=== PATIENT | female | born 1965 | race Caucasian/White ===

== ENCOUNTER → 2017-05-10 | Outpatient (CLI) | payer BC ==
[~2017-05-10] MED LIST: EFF50 PO; IBUP600T44 PO; META1TAB22 PO; OXYC-57 PO; SYN150 PO
--- NOTE | 2017-05-11 14:35 | MAMMOGRAPHY REPORT ---
BILATERAL DIGITAL SCREENING MAMMOGRAM TOMOSYNTHESIS WITH CAD: 05/10/2017 CLINICAL HISTORY: Routine screening examination. TECHNIQUE: Breast tomosynthesis in addition to standard 2D mammography was performed. Current study was also evaluated with a Computer Aided Detection (CAD) system. COMPARISON: Comparison is made to exams dated: 04/21/2013 mammogram, 04/13/2013 mammogram, 07/24/2009 ultrasound, 07/24/2009 mammogram - [facility], and 07/04/2009. BREAST COMPOSITION: There are scattered areas of fibroglandular density in both breasts. FINDINGS: There is an asymmetry with possible associated architectural distortion in the upper outer posterior left breast, for which additional spot compression tomosynthesis views and possibly ultras ound are recommended, although this could represent normal overlapping fibroglandular tissue. There are numerous benign-appearing round calcifications scattered bilaterally. No other suspicious m ass, architectural distortion or cluster of microcalcifications is seen. IMPRESSION: ACR BI-RADS CATEGORY 0: INCOMPLETE EVALUATION: NEED ADDITIONAL IMAGING EVALUATION The asymmetry with possible associated distortion in the upper outer posterior left breast needs marvin tional evaluation. The patient will be called to schedule an appointment. Approximately 10% of breast cancers are not detected with mammography. A negative mammographic report should not delay biopsy if a clinically suggestive mass is present. Glenda Faye M.D. ay/:05/10/2017 15:01:27 Efficiency Miner: Anahy DUNNE)(Elmo), [facility] letter sent: Addl Imaging 0 BI-RADS Code: ACR BI-RADS Category 0: Incomplete Evaluation: Need Additional Imaging Evaluation
== END | disposition home or self-care (01) ==
LOC: C.MAMM 13:36
PROVIDERS: ATTEND Family Medicine
DX: Z12.31 Encounter for screening mammogram for malignant neoplasm of breast (principal); N64.89 Other specified disorders of breast; R92.8 Other abnormal and inconclusive findings on diagnostic imaging of breast

== ENCOUNTER → 2017-05-19 | Outpatient (CLI) | payer BC ==
--- NOTE | 2017-05-19 15:58 | MAMMOGRAPHY REPORT ---
UNILATERAL LEFT DIGITAL DIAGNOSTIC MAMMOGRAM TOMOSYNTHESIS: 05/19/2017 CLINICAL HISTORY: Callback from screening mammogram for left breast asymmetry with associated questio nable architectural distortion. TECHNIQUE: Breast tomosynthesis in addition to standard 2D mammography was performed. Spot compress ion left CC and MLO tomosynthesis images including C views were obtained. COMPARISON: Comparison is made to exams dated: 05/10/2017 mammogram, 04/21/2013 mammogram, 04/13/2013 m ammogram, 07/24/2009 ultrasound, 07/24/2009 mammogram - [facility], and 07/04/2009. BREAST COMPOSITION: There are scattered areas of fibroglandular density in the left breast. FINDINGS: The previously described asymmetry in the left upper outer breast effaces on the additional spot compression views, and has the appearance of normal fibroglandular tissue on the additional gina osynthesis images. No associated architectural distortion is noted on the additional images. Findin gs are benign and compatible with normal fibroglandular tissue. IMPRESSION: ACR BI-RADS CATEGORY 2: BENIGN The left breast asymmetry effaces on the additional views, with no associated architectural distortio n noted on the additional images. Findings are benign and compatible with normal fibroglandular tiss ue. There is no mammographic evidence of malignancy. A 1 year screening mammogram is recommended. T he patient has been verbally notified of the results. Approximately 10% of breast cancers are not detected with mammography. A negative mammographic report should not delay biopsy if a clinically suggestive mass is present. Mya Gasca M.D. ah/:05/19/2017 14:14:01 Research Microbiologist: Velma JUAREZ(Sebas)(M), [facility] letter sent: Normal 1/2 BI-RADS Code: ACR BI-RADS Category 2: Benign
== END | disposition home or self-care (01) ==
LOC: C.MAMM 13:48
PROVIDERS: ATTEND Family Medicine
DX: N64.89 Other specified disorders of breast (principal)

== ENCOUNTER 2017-09-23 20:59 | Emergency (ER) | payer BC ==
[~2017-09-23] VITALS: Ht 160 cm; Wt 84.6 kg
[2017-09-23 21:07] VITALS: TEMP 36.7; Ht 160 cm; Wt 84.6 kg
[2017-09-23] MEDS ORDERED: LEVO150T9 PO (21:16)
[2017-09-23] MEDS ORDERED: VENL75CA73 PO (21:21)
[2017-09-23] MEDS ORDERED: HYDR25TA4 PO (21:21)
[2017-09-23] MEDS ORDERED: LOSA1TAB38 PO (21:21)
[2017-09-23] MEDS ORDERED: ATOR10TA82 PO (21:21)
[2017-09-23] MEDS ORDERED: VENL150T33 PO (21:21)
[2017-09-23] MEDS ORDERED: MoRPHine SULFATE 10 MG/ML CARP/VIAL IM STA (22:00)
[2017-09-23] MEDS ORDERED: KETOROLAC TROMETHAMINE 60 MG/2 ML VIAL IM STA (22:00)
[2017-09-23] MEDS ORDERED: FLEXERIL HOME PACK 10 MG VIAL PO ONE (22:45)
[2017-09-23] MEDS ORDERED: NAPR-21 PO (22:50)
[2017-09-23] MEDS ORDERED: META1TAB22 PO (22:50)
--- NOTE | 2017-09-23 22:54 | EMERGENCY ROOM VISIT NOTE ---
History First contact with patient: 21:39 Chief Complaint: BACK PAIN Stated Complaint: LOWER BACK PAIN History of Present Illness The patient is a 52 year old female who presents to the Emergency Room with complaints of low back pain. The patient reports that she has had a sharp, shooting pain in her low back with radiation down the right leg. She has had some intermittent back pain for several weeks, however the pain worsened significantly this evening. She states that the pain is worse when she is sitting. The pain occasionally eases to a dull pain, but then becomes sharp, 10 /10 shooting pain. She does report a history of similar symptoms 10 years ago. She states that she was treated with muscle relaxers and the pain improved. She has had a few flareups of back pain since then which she has seen her primary care provider for. She does not see a chiropractor for her back specialist. She reports some occasional tingling in the leg. She denies any numbness/weakness, bowel/bladder incontinence, urinary symptoms, or saddle anesthesia. She denies any fevers. She denies anything in her abdomen, nausea or vomiting. Review of Systems A complete 10 point review of systems was reviewed with the patient with pertinent positives and negatives as per history of present illness. All else were negative. Social History Smoking Status: Never Smoker Current/Historical Medications Scheduled Atorvastatin (Lipitor), 10 MG PO DAILY Hydrochlorothiazide (Hctz), 25 MG PO DAILY Levothyroxine Sodium (Levothyroxine Sodium), 150 MCG PO DAILY Losartan Potassium (Cozaar), 100 MG PO DAILY Naproxen (Naprosyn), 500 MG PO BID Venlafaxine Hcl (Venlafaxine Hcl Er), 150 MG PO DAILY Venlafaxine Hcl (Venlafaxine Extended Rel), 75 MG PO DAILY Scheduled PRN Metaxalone (Skelaxin), 800 MG PO TID PRN for Muscle Spasms Physical Exam Vital Signs Date Time Temp Pulse Resp B/P (MAP) Pulse Ox O2 Delivery O2 Flow Rate FiO2 09/23/17 23:55 75 19 129/68 99 09/23/17 22:35 67 20 137/70 95 Room Air 09/23/17 21:07 36.7 91 22 188/95 97 Room Air Physical Exam VITALS: Vitals are noted on the nurse's note and reviewed by myself. Vital signs stable. GENERAL: This is a 52-year-old female, in no acute distress, nondiaphoretic, well-developed well-nourished. SKIN: The skin was without rashes. HEART: Regular rate and rhythm without murmurs gallops or rubs. LUNGS: Clear to auscultation bilaterally without wheezes, rales or rhonchi. ABDOMEN: Positive bowel sounds x 4. Soft, nontender to palpation. MUSCULOSKELETAL: Mild tenderness to palpation in the right lumbar region. Full range of motion in lower extremities, strength 5/5. NEURO: Patient was alert and oriented to person place and time. Normal sensation to light and sharp touch. Medical Decision & Procedures Medications Administered Medications (Trade) Dose Ordered Sig/Gillian Route Start Time Stop Time Status Last Admin Dose Admin Morphine Sulfate (MoRPHine SULFATE INJ) 6 mg NOW STAT IM 09/23/17 22:00 09/23/17 22:01 DC 09/23/17 22:11 6 MG Ketorolac Tromethamine (Toradol Inj) 60 mg NOW STAT IM 09/23/17 22:00 09/23/17 22:01 DC 09/23/17 22:10 60 MG Cyclobenzaprine HCl (FLEXERIL 10MG Home Pack) 1 homepack UD ONCE PO 09/23/17 22:45 09/23/17 22:47 DC 09/23/17 23:37 1 HOMEPACK Hydromorphone HCl (Dilaudid Inj) 0.5 mg NOW STAT IM 09/23/17 23:21 09/23/17 23:23 DC 09/23/17 23:37 0.5 MG ED Course The patient was evaluated as above. Patient was medicated with 6 mg morphine and 60 mg Toradol IM. Patient was reevaluated and was resting in bed. She reported some relief of her pain. Patient was agreeable to discharge but did request one additional dose of medication prior to discharge. She was medicated with 0.5 mg Dilaudid IM. Discharge instructions were reviewed with the patient. The patient verbalized understanding of my assessment and treatment plan and was discharged home in good condition. Medical Decision Differential diagnosis includes cauda equina syndrome, cord compression, disc herniation, muscle spasm, lumbar strain, epidural abscess, malignancy, transverse myelitis, urinary tract infection, colitis, diverticulitis, kidney stone, among others. The patient is a 52-year-old female who presents today complaining of back pain. Patient presentation and exam consistent with lumbar radiculopathy. Nothing to suggest cauda equina syndrome or cord compression. She has had similar episodes of pain in the past. Patient was treated with IM pain medication with relief. She has done well with Skelaxin in the past and will be prescribed this as well as anti-inflammatories. She will follow up with her primary care provider. She was advised to return here for numbness, weakness, bowel/bladder incontinence, fevers, or any other new/concerning symptoms. She verbalized understanding of my assessment and treatment plan and was discharged home in good condition. Medication Reconcilliation Current Medication List: was personally reviewed by me Blood Pressure Screening Patient's blood pressure: Elevated blood pressure Blood pressure disposition: Elevated BP felt to be situational (improved with pain control) Impression Primary Impression: Lumbar radiculopathy Departure Information Dispostion Home / Self-Care Condition GOOD Prescriptions Naproxen (Naprosyn) 500 Mg Tab 500 MG PO BID for 10 Days, #20 TAB Prov: Amira Dutta PA-C 09/23/17 Metaxalone (Skelaxin) 800 Mg Tab 800 MG PO TID Y for Muscle Spasms for 5 Days, #15 TAB Prov: Amira Dutta PA-C 09/23/17 Referrals Mitzi Vega DO (PCP) Patient Instructions Back Pain - [facility], [facility] Additional Instructions You have been treated in the Emergency Department for Back Pain. You have received pain medicine in the emergency department which impairs your ability to operate a vehicle. It is illegal for you to drive after receiving these medicines. Skelaxin as prescribed. For pain control, you can use the following [id number] medicines (if >12 yo): - Regular strength (325mg/tab) Tylenol (acetaminophen) 2 tabs every 4-6 hours as needed. Do not exceed 12 tablets in a 24 hour period. Avoid taking more than 4 grams (4000 mg) of Tylenol per day. This includes any other sources of acetaminophen you may take on a regular basis. Naprosyn as prescribed twice a day. A heating pad can be used over the area for continued soothing relief. You should schedule a follow-up appointment in 2-3 days with your Primary Care Provider for further evaluation and treatment of your back pain. Return to the Emergency Department if your current symptoms worsen despite treatment course outlined above, or if you develop any of the following symptoms : intractable pain despite aforementioned treatment course, loss of control of your bowel or bladder, numbness or tingling in your groin, or development of a fever.
[2017-09-23] MEDS ORDERED: HYDROmorphone INJ 0.5 MG/0.5 ML SYR IM STA (23:21)
[2017-09-23 23:55] VITALS: BP 129/68; PULSE 75; O2SAT 99
== END 2017-09-23 23:54 | disposition home or self-care (01) ==
LOC: C.EDB 21:00
DX: M54.16 Radiculopathy, lumbar region (principal)

== ENCOUNTER 2023-03-19 18:18 | Inpatient (IN) ==
[2023-03-19] MEDS ORDERED: VANCOMYCIN CONSULT ACTIVE PRN (19:43)
[2023-03-19] MEDS ORDERED: CEFEPIME 2,000 MG/20 ML VIAL IV STA (19:43)
[2023-03-19] MEDS ORDERED: VANCOMYCIN HCL 2,250 MG in SODIUM CHLORIDE 0.9% 500 ML IV ONE (19:43)
--- NOTE | 2023-03-19 19:47 | Emergency Department Note ---
Impression & Plan Osteomyelitis ED Provider Note INFORMANT: Patient ED PROVIDER(S): Jesus Ayala DO CHIEF COMPLAINT: Left third toe bone infection PLAN: Disposition: Admission Outpatient prescription management: [none] Discussion with: I spoke with the hospitalist, who will see the patient for admission/observation and further evaluation and consultation. MEDICAL DECISION MAKING: This is a 57-year-old female who presents with a chief complaint of a left third toe infection. The patient states that she had an x-ray on Wednesday that showed a bone infection. She was started on doxycycline on Wednesday for this infection. She had originally had a injury to the toe back in early February. She states that she noticed that her toenail was peeling off of the toe. She went to the beach and the infection got worse. It started to become red and inflamed and painful. The patient states that the symptoms have improved significantly since being started on doxycycline on Wednesday. She was called today because of the abnormal x-ray and told to come in for admission. She does report that she noticed swelling at the tip of the toe since the infection started and she was picking some dried skin off the tip of the toe causing somewhat of an ulceration. She does have a history of neuropathy and diabetes. Denies any recollection of injury. Her vital signs reveal hypertension. Exam reveals some mild redness to the toe although per report is significantly better. There is a small partially healed ulceration to the tip of the toe. There is some swelling of the skin there. No red streaking of the leg. The dorsal aspect of the foot is erythematous and warm although the patient states this is from a sunburn. The other foot is similar. X-ray suggest possible osteomyelitis of the third toe. CBC and chemistry panel did not show leukocytosis, anemia or electrolyte abnormality. Procalcitonin was normal. The patient was treated with IV cefepime and IV vancomycin. She will be seen by the hospitalist. Triage Nursing notes reviewed. Vital Signs: reviewed Prior /Outside records reviewed: [none] Differential diagnosis: Cellulitis, systemic infection, osteomyelitis, Diagnostics, as interpreted by me: 12 lead ECG: none Cardiac Monitoring ordered: none Medical decision rules: none Imaging studies: X-ray of the left foot: Possible osteomyelitis of distal third toe. Procedures: none. Critical care: none. HPI: See MDM above. PAST MEDICAL HISTORY: See Below PAST SURGICAL HISTORY: See Below SOCIAL HISTORY: See Below HOME MEDICATIONS:See Below ALLERGIES: See Below VITALS: See Below PHYSICAL EXAMINATION: See MDM for positive findings otherwise unremarkable. CONSTITUTIONAL/VITAL SIGNS: Reviewed GENERAL:done as appropriate INTEGUMENTARY: done as appropriate HEAD: done as appropriate EYES: done as appropriate RESPIRATORY: done as appropriate CARDIOVASCULAR:done as appropriate GI/ABDOMEN:done as appropriate EXTREMITIES: done as appropriate NEUROLOGICAL: done as appropriate PSYCHIATRIC:done as appropriate MUSCULOSKELETAL:done as appropriate TRIAGE NURSING DOCUMENTATION REVIEWED. Past Med/Surg History Medical History Hypertension Hypothyroidism Lumbar radiculopathy Social History Smoking Status: Never smoker Preferred Language: Lao Feels Safe at Home: Yes Allergies Allergies Allergy/AdvReac Type Severity Reaction Status Date / Time No Known Allergies Allergy Unknown Verified 09/23/17 21:13 Home Meds Home Medications Medication Instructions Recorded Confirmed ATORVASTATIN (LIPITOR) 10 mg PO DAILY #0 tabs 09/23/17 HYDROCHLOROTHIAZIDE (HCTZ) 25 mg PO DAILY #0 tabs 09/23/17 LEVOTHYROXINE SODIUM 150 mcg PO DAILY 90 days #90 tabs 09/23/17 LOSARTAN POTASSIUM (COZAAR) 100 mg PO DAILY #0 tabs 09/23/17 VENLAFAXINE HCL (VENLAFAXINE 75 mg PO DAILY #0 caps 09/23/17 EXTENDED REL) VENLAFAXINE HCL (VENLAFAXINE HCL 150 mg PO DAILY 30 days #30 tabs 09/23/17 ER) Previous Rx's Medication Instructions Recorded carboxymethylcellulose sodium 0.5 1 drp ophthalmic (eye) QID PRN dry 05/15/23 % eye drops (Refresh Tears) eye(s) #15 mL white petrolatum-mineral oil 56.8 1 applic ophthalmic (eye) HS PRN 05/15/23 %-42.5 % eye ointment (Refresh dry eyes #3.5 grams Lacri-Lube) Results & Data (ED) Vital Signs Vital Signs - 24 hr 03/19/23 18:24 Temperature 36.9 C Temperature Source Temporal Artery Scan Pulse Rate 88 Respiratory Rate 20 Respiratory Effort / Characteristics Non-Labored Blood Pressure 168/95 H Blood Pressure Mean 119 Pulse Oximetry 97 Oxygen Delivery Method Room Air Sepsis Recent Fever Within 48 Hours No Sepsis New/Unexplained Change in Mental Status N/A Sepsis Action Taken by Nursing No Action Required Laboratory Data 03/19/23 19:05 03/19/23 19:05 Lab Results 03/19/23 03/19/23 03/19/23 Range/Units 19:05 19:05 19:05 WBC 6.74 (4.8-10.8) K/ul RBC 4.19 L (4.20-5.40) M/uL Hgb 13.0 (12.0-16.0) g/dl Hct 37.8 (37.0-47.0) % MCV 90.2 (80.0-100.0) fL MCH 31.0 (25.0-34.0) pg MCHC 34.4 (32.0-36.0) g/dL RDW Std Deviation 46.2 (36.4-46.3) fL RDW Coeff of Alex 14.2 (11.5-14.5) % Plt Count 243 (130-400) K/uL MPV 9.5 (9.4-12.4) fL Immature Gran % (Auto) 1.3 % Neut % (Auto) 67.3 % Lymph % (Auto) 21.8 % Lincoln % (Auto) 7.4 % Eos % (Auto) 1.3 % Baso % (Auto) 0.9 % Neut # (Auto) 4.53 (1.40-6.50) K/uL Lymph # (Auto) 1.47 (1.2-3.4) K/uL Lincoln # (Auto) 0.50 (0.11-0.59) K/uL Eos # (Auto) 0.09 (0-0.50) K/uL Baso # (Auto) 0.06 (0-0.2) K/uL Immature Gran # (Auto) 0.09 (0.01-0.20) K/uL Sodium 138 (136-145) mmol/L Potassium 3.4 L (3.5-5.1) mmol/L Chloride 102 (98-107) mmol/L Carbon Dioxide 27 (21-32) mmol/L Anion Gap 9 (3-11) BUN 15 (6-23) mg/dl Creatinine 0.75 (0.6-1.2) mg/dl Est Cr Clr Drug Dosing 96.8 ml/min Est GFR ( Amer) 102.6 ml/min Est GFR (Non-Af Amer) 88.5 ml/min BUN/Creatinine Ratio 20.0 (10-20) Glucose 168 H (70-99(Fasting)) mg/dl Calcium 9.7 (8.6-10.3) mg/dl Total Bilirubin 0.5 (0.2-1.0) mg/dl AST 19 (13-39) U/L ALT 18 (7-52) U/L Alkaline Phosphatase 108 H (34-104) U/L Total Protein 7.3 (6.0-8.3) gm/dl Albumin 4.1 (3.4-5.0) gm/dl Globulin 3.2 (2.5-4.0) gm/dl Albumin/Globulin Ratio 1.3 (0.9-2) Procalcitonin < 0.05 (0-0.5) ng/ml Administered Medications Vancomycin HCl 2,250 mg/ (Sodium Chloride) 545 mls @ 200 mls/hr IV NOW ONE Stop: 03/19/23 22:26 Last Admin: 03/19/23 20:06 Dose: 200 mls/hr Documented By: JOS Discontinued Medications Cefepime HCl (Maxipime) 2,000 mg in 20 mls @ 5 mls/min IV NOW STA; Protocol Stop: 03/19/23 19:46 Last Admin: 03/19/23 19:55 Dose: 5 mls/min Documented By: JOS Discharge Plan Visit Data Chief Complaint: Infection Stated Complaint: REF BY DOC,INFECTION IN TOE AND BONE ED Provider: Jesus Ayala Discharge Problem: Osteomyelitis Patient Disposition: Being Evaluated by Hospitalist Forms Stand Alone Forms: [facility], Virtual Emergency Department, Important Visit Information Prescriptions Prescriptions: No Action ATORVASTATIN (LIPITOR) 10 MG tablet 10 mg PO DAILY Qty: 0 VENLAFAXINE HCL (VENLAFAXINE HCL ER) 150 MG tablet 150 mg PO DAILY 30 Days Qty: 30 Patient Comments: TAKE 150MG TABLET DAILY WITH A 75MG TABLET FOR A TOTAL DOSE OF 225MG doxycycline hyclate 100 mg capsule 100 mg PO BID losartan-hydrochlorothiazide 100-25 mg tablet 1 tab PO DAILY gabapentin 100 mg capsule 100 mg PO DAILY Rx Instructions: per pt she usually takes 3 in the morning and 3 in the evening. metoprolol succinate 25 mg tablet extended release 24 hr 25 mg PO DAILY metformin 500 mg tablet extended release 24 hr 500 mg PO BID levothyroxine 112 mcg tablet 112 mcg PO DAILY buspirone 150 mg PO DAILY carboxymethylcellulose sodium [Refresh Tears] 0.5 % drops 1 drp ophthalmic (eye) QID PRN (Reason: dry eye(s)) Qty: 15 0RF Referrals Referrals: Mitzi Vega DO [Primary Care Provider] -
[2023-03-19 19:49] LABS: Basophils # (auto) 0.06 K/uL (0-0.2); Basophils % (auto) 0.9 %; Eosinophils # (auto) 0.09 K/uL (0-0.50); Eosinophils % (auto) 1.3 %; Hematocrit (blood only) 37.8 % (37.0-47.0); Immature Granulocytes # (auto) 0.09 K/uL (0.01-0.20); Immature Granulocytes % (auto) 1.3 %; Lymphocytes # (auto) 1.47 K/uL (1.2-3.4); Lymphocytes % (auto) 21.8 %; Mean Corpuscular Hgb Conc 34.4 g/dL (32.0-36.0); Mean Corpuscular Volume 90.2 fL (80.0-100.0); Mean Platelet Volume 9.5 fL (9.4-12.4); Monocytes % (auto) 7.4 %; Neutrophils # (auto) 4.53 K/uL (1.40-6.50); Neutrophils % (auto) 67.3 %; Platelet Count 243 K/uL (130-400); RDW Coefficient of Variation 14.2 % (11.5-14.5); RDW Standard Deviation 46.2 fL (36.4-46.3); Red Blood Count 4.19 M/uL (4.20-5.40); White Blood Count 6.74 K/ul (4.8-10.8)
[2023-03-19 20:04] LABS: Albumin Globulin Ratio 1.3 (0.9-2); Albumin Level 4.1 gm/dl (3.4-5.0); Bilirubin,Total 0.5 mg/dl (0.2-1.0); Calcium 9.7 mg/dl (8.6-10.3); Creatinine Clr Calc Pharmacy 96.8 ml/min; Est GFR (African American) 102.6 ml/min; Est GFR (Non-African American) 88.5 ml/min; Globulin 3.2 gm/dl (2.5-4.0); Potassium 3.4 mmol/L (3.5-5.1); Total Protein 7.3 gm/dl (6.0-8.3)
[2023-03-19] MEDS ORDERED: POTASSIUM CHLORIDE CRTAB 20 MEQ TABCR PO STA (20:47)
[2023-03-19 21:01] LABS: Magnesium 1.4 mg/dl (1.7-2.4)
--- NOTE | 2023-03-19 22:29 | XRay Report ---
LEFT FOOT 3 VIEWS CLINICAL HISTORY: Third toe infection. FINDINGS: 3 views of the left foot are obtained. No prior studies are available for comparison at the time of dictation. The skeletal structures are osteopenic. No acute fracture is seen. There is erosi ve destructive change involving the tuft of the third distal phalanx with overlying soft tissue edema . The appearance is typical for osteomyelitis. No additional similar appearing foci of destructive ch alexandrea are identified at the foot. There is moderate osteoarthritic change at the first metatarsophalan geal joint. Milder degenerative change is seen throughout the remainder of the foot. There are large dorsal and plantar heel spurs. Degenerative spurring is seen along the dorsal aspect of the tarsal crow adan. Dorsal soft tissue swelling seen throughout the foot. No radiodense foreign body is seen. IMPRESSION: 1. No acute fracture is identified. 2. There is erosive destructive change involving the tuft of the third distal phalanx with overlying soft tissue edema typical for osteomyelitis. 3. Osteopenia with degenerative change and heel spurs as above. Electronically signed by: Remigio Dao M.D. 03/19/2023 10:28 PM
[2023-03-19] MEDS: MAGNESIUM SULFATE / D5W 1 GM/100 ML BAG IV SCH (22:50)
--- NOTE | 2023-03-19 23:28 | History & Physical Report ---
Date of Service March 19, 2023 Assessment & Plan (1) Osteomyelitis: Plan: Left middle toe DM foot infection no sepsis for now hypertension, slightly elevated hyperlipidemia on statin Rx DM2 on oral medications, suboptimal control as of recent hemoglobin A1c of 7.4 last July 2022 hypothyroidism, euthyroid as of recent outpatient TSH anxiety/mood disorder, at baseline Hypokalemia secondary to diuretic Rx recent Paredes's palsy, improved post Valtrex and prednisone Rx GMF CS, Doxycycline, Cefepime Offload LLE Orthopedics consult Re: Left middle toe osteomyelitis Replace electrolytes, hold home diuretic for now Basal bolus insulin, ISS BG goal 1 10-1 40, carb count coverage, update hemoglobin A1c DVT prophylaxis. Lovenox subcu Full code Text document was generated using [employer] voice recognition software. It may contain grammatical or spelling errors. Kindly contact undersigned for clarification of any documentation item in question. History of Present Illness Chief Complaint: toe infection, abnormal x-ray Primary Care Provider: Mitzi Vega, History obtained from patient, family, and records. Medical history significant for hypertension, hyperlipidemia, DM2 on oral medications, hypothyroidism, anxiety/mood disorder, recent Paredes's palsy. Patient seen at the ER last month for right-sided facial weakness. Impression was Paredes's palsy. Patient completed Valtrex and steroid Rx. Facial weakness improving as per patient. 3 weeks ago, patient was on a beach vacation with her family when she noted a wound on the left middle toe. Does not recall how she got wound. Last week, skin came off left middle toe wound with some drainage after some manipulation. No fever, no chills. Patient seen at PCP's office 5 days ago. Doxycycline prescribed for toe infection which led to improvement of wound infection as per patient. Outpatient x-ray read today as osteomyelitis involving the distal phalanx of the third digit. Patient directed to ER by outpatient provider. Vancomycin and cefepime administered at the ER. Medical History as above Surgical History : section Family History : Breast cancer, colon cancer, DM, thyroid disease Personal/Social history : Non-smoker, occasional EtOH intake, office accounting work Allergies Allergy/AdvReac Type Severity Reaction Status Date / Time No Known Allergies Allergy Unknown Verified 09/23/17 21:13 Home Medications Medication Instructions Recorded Confirmed Type ATORVASTATIN (LIPITOR) 10 mg PO DAILY #0 tabs 09/23/17 03/19/23 History VENLAFAXINE HCL (VENLAFAXINE HCL 150 mg PO DAILY 30 days #30 tabs 09/23/17 03/19/23 History ER) carboxymethylcellulose sodium 0.5 1 drp ophthalmic (eye) QID PRN dry 02/08/23 03/19/23 Rx % eye drops (Refresh Tears) eye(s) #15 mL doxycycline hyclate 100 mg capsule 100 mg PO BID 03/19/23 03/19/23 History gabapentin 100 mg capsule 100 mg PO DAILY 03/19/23 03/19/23 History levothyroxine 112 mcg tablet 112 mcg PO DAILY 03/19/23 03/19/23 History losartan 100 1 tab PO DAILY 03/19/23 03/19/23 History mg-hydrochlorothiazide 25 mg tablet metformin 500 mg tablet,extended 500 mg PO BID 03/19/23 03/19/23 History release 24 hr metoprolol succinate 25 mg 25 mg PO DAILY 03/19/23 03/19/23 History tablet,extended release 24 hr bupropion HCl 150 mg 24 hr tablet, 150 mg PO DAILY 03/20/23 03/20/23 History extended release Past Med/Surg History Medical History Hypertension Hypothyroidism Lumbar radiculopathy Social History Smoking Status: Never smoker Second Hand Exposure: No; Do You Dip or Chew Tobacco: No; Tobacco Cessation Education Requested by Patient: No Hx Alcohol Use: Yes Alcohol type: wine and hard liquor Hx Substance Use: No Preferred Language: Swedish Communication Ability: Effective Crime Data Specialist Required: No Beliefs That Will Affect Care: None Current Living Situation: Family Other Information That Helps Us Care for You: No Feels Safe at Home: Yes Safety Concerns: Feels Safe At This Time Assistive Devices: CPAP and Glasses Review of Systems Review of Systems: As per HPI, all other systems reviewed and negative Physical Exam Physical Exam: GENERAL: Comfortable, pleasant, morbidly obese, no respiratory distress SKIN: Normal color, warm HEENT: [place] palpebral conjunctivae, right facial palsy, dry buccal mucosa NECK : Supple, short neck, no tenderness CHEST : CTA, no tenderness HEART : RRR, no obvious murmurs ABDOMEN: Some distention, nontender EXTREMITIES : Minimal LE swelling, no LE tenderness, necrotic wound noted over left middle toe with scant drainage NEUROLOGIC : Coherent, no facial asymmetry, no other gross focality Results & Data Results & Data Vital Signs (Past 12 Hours) Vital Signs Temp Pulse Pulse Resp BP BP Pulse Ox 03/19/23 20:30 78 18 126/80 96 03/19/23 18:24 36.9 C 88 20 168/95 H 97 O2 Del Method 03/19/23 20:30 Room Air 03/19/23 18:24 Room Air Laboratory Results Laboratory Results WBC 6.74 K/ul (4.8-10.8) 03/19/23 19:05 RBC 4.19 M/uL (4.20-5.40) L 03/19/23 19:05 Hgb 13.0 g/dl (12.0-16.0) 03/19/23 19:05 Hct 37.8 % (37.0-47.0) 03/19/23 19:05 MCV 90.2 fL (80.0-100.0) 03/19/23 19:05 MCH 31.0 pg (25.0-34.0) 03/19/23 19:05 MCHC 34.4 g/dL (32.0-36.0) 03/19/23 19:05 RDW Std Deviation 46.2 fL (36.4-46.3) 03/19/23 19:05 RDW Coeff of Alex 14.2 % (11.5-14.5) 03/19/23 19:05 Plt Count 243 K/uL (130-400) 03/19/23 19:05 MPV 9.5 fL (9.4-12.4) 03/19/23 19:05 Immature Gran % (Auto) 1.3 % 03/19/23 19:05 Neut % (Auto) 67.3 % 03/19/23 19:05 Lymph % (Auto) 21.8 % 03/19/23 19:05 Patrick % (Auto) 7.4 % 03/19/23 19:05 Eos % (Auto) 1.3 % 03/19/23 19:05 Baso % (Auto) 0.9 % 03/19/23 19:05 Neut # (Auto) 4.53 K/uL (1.40-6.50) 03/19/23 19:05 Lymph # (Auto) 1.47 K/uL (1.2-3.4) 03/19/23 19:05 Patrick # (Auto) 0.50 K/uL (0.11-0.59) 03/19/23 19:05 Eos # (Auto) 0.09 K/uL (0-0.50) 03/19/23 19:05 Baso # (Auto) 0.06 K/uL (0-0.2) 03/19/23 19:05 Immature Gran # (Auto) 0.09 K/uL (0.01-0.20) 03/19/23 19:05 Sodium 138 mmol/L (136-145) 03/19/23 19:05 Potassium 3.4 mmol/L (3.5-5.1) L 03/19/23 19:05 Chloride 102 mmol/L (98-107) 03/19/23 19:05 Carbon Dioxide 27 mmol/L (21-32) 03/19/23 19:05 Anion Gap 9 (3-11) 03/19/23 19:05 BUN 15 mg/dl (6-23) 03/19/23 19:05 Creatinine 0.75 mg/dl (0.6-1.2) 03/19/23 19:05 Est Cr Clr Drug Dosing 96.8 ml/min 03/19/23 19:05 Est GFR ( Amer) 102.6 ml/min 03/19/23 19:05 Est GFR (Non-Af Amer) 88.5 ml/min 03/19/23 19:05 BUN/Creatinine Ratio 20.0 (10-20) 03/19/23 19:05 Glucose 168 mg/dl (70-99(Fasting)) H 03/19/23 19:05 Calcium 9.7 mg/dl (8.6-10.3) 03/19/23 19:05 Magnesium 1.4 mg/dl (1.7-2.4) L 03/19/23 19:05 Total Bilirubin 0.5 mg/dl (0.2-1.0) 03/19/23 19:05 AST 19 U/L (13-39) 03/19/23 19:05 ALT 18 U/L (7-52) 03/19/23 19:05 Alkaline Phosphatase 108 U/L (34-104) H 03/19/23 19:05 Total Protein 7.3 gm/dl (6.0-8.3) 03/19/23 19:05 Albumin 4.1 gm/dl (3.4-5.0) 03/19/23 19:05 Globulin 3.2 gm/dl (2.5-4.0) 03/19/23 19:05 Albumin/Globulin Ratio 1.3 (0.9-2) 03/19/23 19:05 Procalcitonin < 0.05 ng/ml (0-0.5) 03/19/23 19:05 SARS-CoV-2, RNA, NAAT NEGATIVE (NEGATIVE) 03/19/23 20:34 Impressions Foot X-Ray 03/19/23 19:41 LEFT FOOT 3 VIEWS CLINICAL HISTORY: Third toe infection. FINDINGS: 3 views of the left foot are obtained. No prior studies are available for comparison at the time of dictation. The skeletal structures are osteopenic. No acute fracture is seen. There is erosive destructive change involving the tuft of the third distal phalanx with overlying soft tissue edema. The appearance is typical for osteomyelitis. No additional similar appearing foci of destructive change are identified at the foot. There is moderate osteoarthritic change at the first metatarsophalangeal joint. Milder degenerative change is seen throughout the remainder of the foot. There are large dorsal and plantar heel spurs. Degenerative spurring is seen along the dorsal aspect of the tarsal bones. Dorsal soft tissue swelling seen throughout the foot. No radiodense foreign body is seen. IMPRESSION: 1. No acute fracture is identified. 2. There is erosive destructive change involving the tuft of the third distal phalanx with overlying soft tissue edema typical for osteomyelitis. 3. Osteopenia with degenerative change and heel spurs as above. Electronically signed by: Remigio Dao M.D. 03/19/2023 10:28 PM
[2023-03-19] MEDS ORDERED: NSS + 20MEQ KCL 20 MEQ/1,000 ML BAG IV ONE (23:35)
[2023-03-19] MEDS ORDERED: NON-FORMULARY PATIENT'S OWN MED OPR SCH (23:40)
[2023-03-20] MEDS ORDERED: GLUCOSE 40% GEL 15 GM TUBE PO PRN (00:41)
[2023-03-20] MEDS ORDERED: GLUCOSE 10 TAB/TUBE PO PRN (00:41)
[2023-03-20] MEDS ORDERED: ACETAMINOPHEN 325 MG TAB PO PRN (00:41)
[2023-03-20] MEDS ORDERED: GLUCAGON FOR INJ 1 MG VIAL SQ PRN (00:41)
[2023-03-20] MEDS ORDERED: PROMETHAZINE HCL 12.5 MG in SODIUM CHLORIDE 0.9% 50 ML IV PRN (00:41)
[2023-03-20] MEDS ORDERED: oxyCODONE HCL IR 5 MG TAB (IMMEDIATE RELEASE) PO PRN (00:41)
[2023-03-20] MEDS ORDERED: CARBOHYDRATES FOR HYPOGLYCEMIA PO PRN (00:41)
[2023-03-20] MEDS ORDERED: DEXTROSE 50% 50 ML SYRINGE IV PRN (00:41)
[2023-03-20] MEDS: MAGNESIUM SULFATE / D5W 1 GM/100 ML BAG IV SCH (01:50)
[2023-03-20] MEDS: ARTIFICIAL TEARS OPR SCH ×5 (02:08→20:38)
[2023-03-20] MEDS: LANTUS PER UNIT CHARGE SQ SCH ×2 (02:20→21:27)
[2023-03-20] MEDS: INSULIN ASPART PER UNIT CHARGE SC SCH ×5 (02:20→21:26)
[2023-03-20] MEDS: LEVOTHYROXINE SODIUM 112 MCG TABLET PO SCH (05:54)
[2023-03-20] MEDS: CEFEPIME 2,000 MG in SYRINGE 0 ML IV SCH ×3 (05:54→22:22)
[2023-03-20 06:42] LABS: Basophils # (auto) 0.05 K/uL (0-0.2); Basophils % (auto) 0.8 %; Eosinophils # (auto) 0.08 K/uL (0-0.50); Eosinophils % (auto) 1.2 %; Hematocrit (blood only) 33.3 % (37.0-47.0); Hemoglobin 11.4 g/dl (12.0-16.0); Immature Granulocytes # (auto) 0.09 K/uL (0.01-0.20); Immature Granulocytes % (auto) 1.4 %; Lymphocytes # (auto) 1.21 K/uL (1.2-3.4); Lymphocytes % (auto) 18.4 %; Mean Corpuscular Hemoglobin 31.6 pg (25.0-34.0); Mean Corpuscular Hgb Conc 34.2 g/dL (32.0-36.0); Mean Corpuscular Volume 92.2 fL (80.0-100.0); Mean Platelet Volume 9.4 fL (9.4-12.4); Monocytes # (auto) 0.59 K/uL (0.11-0.59); Neutrophils # (auto) 4.54 K/uL (1.40-6.50); Neutrophils % (auto) 69.2 %; Platelet Count 223 K/uL (130-400); RDW Coefficient of Variation 14.2 % (11.5-14.5); Red Blood Count 3.61 M/uL (4.20-5.40); White Blood Count 6.56 K/ul (4.8-10.8)
[2023-03-20 06:51] LABS: BUN Creatinine Ratio 15.2 (10-20); Calcium 8.9 mg/dl (8.6-10.3); Creatinine Clr Calc Pharmacy 79.1 ml/min; Est GFR (African American) 80.1 ml/min; Est GFR (Non-African American) 69.1 ml/min; Magnesium 1.9 mg/dl (1.7-2.4); Potassium 3.8 mmol/L (3.5-5.1)
[2023-03-20 08:09] LABS: Estimated Average Glucose 166 mg/dl; Hemoglobin A1C 7.4 % (4.5-5.6)
[2023-03-20] MEDS: METOPROLOL SUCC 25MG EXT REL TAB PO SCH (08:58)
[2023-03-20] MEDS: buPROPion XL 150 MG TABCR PO SCH (08:58)
[2023-03-20] MEDS: VENLAFAXINE HCL XR 150 MG CAPXR PO SCH (08:58)
[2023-03-20] MEDS: GABAPENTIN 100 MG CAP PO SCH ×3 (08:59→20:37)
[2023-03-20] MEDS: LOSARTAN POTASSIUM 50 MG TAB PO SCH (08:59)
[2023-03-20] MEDS: DOXYCYCLINE HYCLATE 100 MG CAP PO SCH ×2 (08:59→20:38)
[2023-03-20] MEDS: ATORVASTATIN 10 MG TAB PO SCH (08:59)
[2023-03-20] MEDS: ENOXAPARIN INJ 40 MG/0.4 ML SYR SQ SCH (09:00)
[2023-03-20] MEDS ORDERED: BUSPIRONE PO SCH (09:00)
[2023-03-20] MEDS ORDERED: GABAPENTIN 100 MG CAP PO SCH (09:00)
--- NOTE | 2023-03-20 13:09 | Orthopedic Consultation ---
Date of Consultation March 20, 2023 Assessment & Plan (1) Osteomyelitis: 57-year-old female with suspected left third toe osteomyelitis -Local wound care -IV antibiotics reviewed per primary team -Elevate left remedy -May weight-bear as tolerated left lower extremity assistance shoe -Would recommend obtaining an MRI of the left foot to evaluate for extent of bony involvement. We will follow-up after MRI is completed. History of Present Illness Reason for Consultation: Left third toe wound Attending Physician: Devora Dsouza MD History of Present Illness 50-year-old female with history of diabetes presenting for a left third toe wound. She reports that she sustained wounds over the distal aspect of her left third toe while at the beach approximate 1 and half weeks ago. Since that time she had increased swelling in her left third toe. She evaluated in the emergency department and radiographs were obtained demonstrating some nasal concerning for osteomyelitis. The patient was admitted to medical service started on IV antibiotic therapy. She does report that her swelling has much improved since starting antibiotics as well has her not manage pain due to peripheral neuropathy. Allergies Allergy/AdvReac Type Severity Reaction Status Date / Time No Known Allergies Allergy Unknown Verified 09/23/17 21:13 Home Medications Medication Instructions Recorded Confirmed Type ATORVASTATIN (LIPITOR) 10 mg PO DAILY #0 tabs 09/23/17 03/19/23 History VENLAFAXINE HCL (VENLAFAXINE HCL 150 mg PO DAILY 30 days #30 tabs 09/23/17 03/19/23 History ER) carboxymethylcellulose sodium 0.5 1 drp ophthalmic (eye) QID PRN dry 02/08/23 03/19/23 Rx % eye drops (Refresh Tears) eye(s) #15 mL doxycycline hyclate 100 mg capsule 100 mg PO BID 03/19/23 03/19/23 History gabapentin 100 mg capsule 100 mg PO DAILY 03/19/23 03/19/23 History levothyroxine 112 mcg tablet 112 mcg PO DAILY 03/19/23 03/19/23 History losartan 100 1 tab PO DAILY 03/19/23 03/19/23 History mg-hydrochlorothiazide 25 mg tablet metformin 500 mg tablet,extended 500 mg PO BID 03/19/23 03/19/23 History release 24 hr metoprolol succinate 25 mg 25 mg PO DAILY 03/19/23 03/19/23 History tablet,extended release 24 hr bupropion HCl 150 mg 24 hr tablet, 150 mg PO DAILY 03/20/23 03/20/23 History extended release Patient History Medical History Hypertension Hypothyroidism Lumbar radiculopathy Social History Smoking Status: Never smoker Second Hand Exposure: No; Do You Dip or Chew Tobacco: No; Tobacco Cessation Education Requested by Patient: No Hx Alcohol Use: Yes Alcohol type: wine and hard liquor Hx Substance Use: No Preferred Language: Slovak Communication Ability: Effective Light Industrial Required: No Beliefs That Will Affect Care: None Current Living Situation: Family Other Information That Helps Us Care for You: No Feels Safe at Home: Yes Safety Concerns: Feels Safe At This Time Assistive Devices: CPAP and Glasses Physical Exam Constitutional: No acute distress, alert and oriented person place and time Musculoskeletal: Left lower extremity -Swelling and mild erythema involving the left third toe. There is a small ulcerated area overlying the tip of the distal phalanx. -Sensation intact to light touch spn/dpn/t/s, however slightly secondary to peripheral neuropathy -Wiggles toes -Palpable dorsalis pedis and posterior tibial pulse with brisk capillary refill Results & Data Vital Signs (Past 12 Hours) Vital Signs Temp Pulse Pulse Resp BP Pulse Ox O2 Del Method 03/20/23 07:44 36.7 C 71 16 104/66 94 Room Air 03/20/23 07:34 36.9 C 74 16 108/66 95 Room Air Diagnostic Findings Radiographs of the left foot demonstrate the change consistent with suspected osteomyelitis involving the left third toe distal phalanx. No evidence of fractures noted
--- NOTE | 2023-03-20 13:43 | Hospitalist Progress Note ---
Date of Service March 20, 2023 Assessment & Plan (1) Osteomyelitis: Plan: Initial minor injury noted under the nail of the left third toe while she was in the beach on around 03/04/2023. Applied Band-Aid and then condition worsened and went to see her primary care physician on and underwent an x-ray on 03/14/2023 and was put on doxycycline. The condition seem to be improving but she was called in on with abnormal x-ray finding and was advised to come to the ER for further evaluation and management. X-ray did show osteomyelitis involving the terminal phalanx of the left third toe DM neuropathy with foot infection No sepsis on admission Appreciate Ortho input and recommendation We will continue current antibiotics with intravenous vancomycin and doxycycline Will have MRI to evaluate osteomyelitis and further management as per orthopedic surgeon Patient remains asymptomatic and without any pain likely secondary to neuropathy from diabetes Hypertension, slightly elevated Blood pressure seems to be on the lower side and stable Hyperlipidemia on statin Rx DM2 on oral medications, suboptimal control as of recent hemoglobin A1c of 7.4 last July 2022 Blood sugar remains stable We will continue with sliding scale insulin coverage Basal bolus insulin, ISS BG goal 1 10-1 40, carb count coverage, update hemoglobin A1c Hypothyroidism, euthyroid as of recent outpatient TSH Continue supplement Anxiety/mood disorder, at baseline Recent Paredes's palsy, improved post Valtrex and prednisone Rx No acute issues DVT prophylaxis. Lovenox subcu Full code Admission and Anticipated Discharge Date Admission Date: March 19, 2023 Subjective 03/20/2023 The patient was seen and examined in medical floor She was sent in from home following an abnormal x-ray report done by the PCP Has osteomyelitis involving the distal phalanx of left third toe Denies any fever and or chills, any pain, any nausea and or vomiting but does have minimal warmth and redness of the adjoining foot Review of Systems Review of Systems: All systems reviewed and are unremarkable except as noted below Physical Exam Physical Exam: Lying in bed comfortably Constitutional: well developed, well nourished and + obese; not ill appearing Eyes: PERRL, conjunctivae normal, anicteric sclerae ENMT: external ear and nose normal, oropharynx normal Neck: trachea midline, no thyromegaly Respiratory: no respiratory distress Auscultation: lungs clear to auscultation bilaterally Cardiovascular: Rate/Rhythm: regular rate and regular rhythm; not tachycardic Heart Sounds: normal S1 and normal S2; no murmur Extremities: + edema (Trace edema bilaterally) Gastrointestinal (Abdomen): Inspection/Auscultation: normal bowel sounds; abdomen not distended Percussion/Palpation: abdomen soft; abdomen nontender Musculoskeletal: Extremities: + foot abnormality (Left third toe is swollen with an ulcer at the tip with adjoining redness ) Left Neurologic: normal touch/pain/proprioception and moves all extremities; no focal motor deficits Psychiatric: A+Ox3, euthymic affect Lymphatic: no cervical or axillary lymphadenopathy Results & Data Results & Data Vital Signs (Past 12 Hours) Vital Signs Temp Pulse Pulse Resp BP Pulse Ox O2 Del Method 03/20/23 07:44 36.7 C 71 16 104/66 94 Room Air 03/20/23 07:34 36.9 C 74 16 108/66 95 Room Air Laboratory Results Short CBC 03/19/23 03/20/23 Range/Units 19:05 06:05 WBC 6.74 6.56 (4.8-10.8) K/ul Hgb 13.0 11.4 L (12.0-16.0) g/dl Hct 37.8 33.3 L (37.0-47.0) % Plt Count 243 223 (130-400) K/uL BMP 03/19/23 03/20/23 19:05 06:05 Sodium 138 137 Potassium 3.4 L 3.8 Chloride 102 104 Carbon Dioxide 27 26 BUN 15 14 Creatinine 0.75 0.92 Glucose 168 H 153 H Calcium 9.7 8.9 Liver Function 03/19/23 Range/Units 19:05 Total Bilirubin 0.5 (0.2-1.0) mg/dl AST 19 (13-39) U/L ALT 18 (7-52) U/L Alkaline Phosphatase 108 H (34-104) U/L Albumin 4.1 (3.4-5.0) gm/dl Medications Administered Current Inpatient Medications Acetaminophen (Acetaminophen 325 Mg Tab) 650 mg PO Q4H PRN PRN Reason: pain/fever Stop: 04/19/23 00:40 Artificial Tears (Artificial Tears) 1 drops OPR QID ZOE Stop: 04/19/23 01:44 Last Admin: 03/20/23 08:59 Dose: Not Given Atorvastatin Calcium (Atorvastatin 10 Mg Tab) 10 mg PO DAILY [facility] Stop: 04/19/23 08:59 Last Admin: 03/20/23 08:59 Dose: 10 mg Bupropion HCl (Bupropion Xl 150 Mg Tabcr) 150 mg PO QAM [facility] Stop: 04/19/23 08:59 Last Admin: 03/20/23 08:58 Dose: 150 mg Dextrose (Dextrose 50% 50 Ml Syringe) 25 - 50 ml IV UD PRN; Protocol PRN Reason: Hypoglycemia Protocol Stop: 04/19/23 00:40 Doxycycline Hyclate (Doxycycline Hyclate 100 Mg Cap) 100 mg PO BID [facility] Stop: 05/01/23 08:59 Last Admin: 03/20/23 08:59 Dose: 100 mg Enoxaparin Sodium (Enoxaparin Inj 40 Mg/0.4 Ml Syr) 40 mg SQ QAM [facility] Stop: 04/19/23 08:59 Last Admin: 03/20/23 09:00 Dose: 40 mg Gabapentin (Gabapentin 100 Mg Cap) 200 mg PO TID [facility] Stop: 04/19/23 08:59 Last Admin: 03/20/23 08:59 Dose: 200 mg Glucagon (Glucagon For Inj 1 Mg Vial) 1 mg SQ UD PRN; Protocol PRN Reason: Hypoglycemia Protocol Stop: 04/19/23 00:40 Glucose (Glucose 10 Tab/Tube) 4 - 8 tab PO UD PRN; Protocol PRN Reason: Hypoglycemia Treatment Stop: 04/19/23 00:40 Glucose (Glucose 40% Gel 15 Gm Tube) 15 - 30 gm PO UD PRN; Protocol PRN Reason: Hypoglycemia Protocol Stop: 04/19/23 00:40 Potassium Chloride/Sodium Chloride (Normal Saline W/20 Meq Kcl) 20 meq in 1,000 mls @ 50 mls/hr IV .Q20H ONE; Protocol Stop: 03/20/23 19:34 Last Admin: 03/20/23 03:26 Dose: 50 mls/hr Cefepime HCl 2,000 mg/ Syringe 20 mls @ 5 mls/min IV Q8H ZOE; Protocol Stop: 05/01/23 05:59 Last Admin: 03/20/23 05:54 Dose: 5 mls/min Promethazine HCl 12.5 mg/ (Sodium Chloride) 50.5 mls @ 202 mls/hr IV Q6H PRN PRN Reason: Nausea And Vomiting Stop: 04/19/23 00:40 Insulin Aspart (Insulin Aspart Per Unit Charge) 0 units SC ACHS [facility] Stop: 04/19/23 00:40 Last Admin: 03/20/23 09:00 Dose: 2 units Insulin Glargine (Lantus Per Unit Charge) 5 units SQ HS [facility] Stop: 04/19/23 00:40 Last Admin: 03/20/23 02:20 Dose: 5 units Levothyroxine Sodium (Levothyroxine Sodium 112 Mcg Tablet) 112 mcg PO DAILYBB [facility] Stop: 04/19/23 06:29 Last Admin: 03/20/23 05:54 Dose: 112 mcg Losartan Potassium (Losartan Potassium 50 Mg Tab) 100 mg PO QAM [facility] Stop: 04/19/23 08:59 Last Admin: 03/20/23 08:59 Dose: 100 mg Metoprolol Succinate (Metoprolol Succ 25mg Ext Rel Tab) 25 mg PO DAILY [facility] Stop: 04/19/23 08:59 Last Admin: 03/20/23 08:58 Dose: 25 mg Miscellaneous (Carbohydrates For Hypoglycemia ) 15 - 30 gm PO UD PRN PRN Reason: Hypoglycemia Protocol Stop: 04/19/23 00:40 Oxycodone HCl (Oxycodone Hcl Ir 5 Mg Tab (Immediate Release)) 5 mg PO Q4H PRN PRN Reason: Pain Stop: 04/03/23 00:40 Venlafaxine HCl (Venlafaxine Hcl Xr 150 Mg Capxr) 150 mg PO DAILY [facility] Stop: 04/19/23 08:59 Last Admin: 03/20/23 08:58 Dose: 150 mg
[2023-03-20] MEDS ORDERED: GADOBUTROL 15ML VIAL IV ONE (15:54)
--- NOTE | 2023-03-20 16:32 | Magnetic Resonance Report ---
MR foot LT wo/w con CLINICAL HISTORY: suspected osteomyelitis TECHNIQUE: Multiplanar multisequence MR images of the left foot were obtained. Comparison: Comparison is made to left foot radiograph 03/19/2023 FINDINGS: Soft tissue swelling and edema are seen most prominent in the third digit. There is edema of the dist al phalanx of the third digit. No drainable fluid collections are seen. IMPRESSION: Findings are compatible with cellulitis with osteomyelitis of the third digit distal phalanx. ACT 112: Negative or not required by law. Electronically signed by: Jose L Vazquez M.D. 03/20/2023 4:29 PM
[2023-03-21] MEDS: LEVOTHYROXINE SODIUM 112 MCG TABLET PO SCH (06:13)
[2023-03-21] MEDS: CEFEPIME 2,000 MG in SYRINGE 0 ML IV SCH ×3 (06:13→21:10)
[2023-03-21 07:41] LABS: BUN Creatinine Ratio 17.4 (10-20); Calcium 8.8 mg/dl (8.6-10.3); Creatinine Clr Calc Pharmacy 84.6 ml/min; Est GFR (African American) 86.9 ml/min; Potassium 4.2 mmol/L (3.5-5.1)
[2023-03-21 07:58] LABS: Basophils # (auto) 0.05 K/uL (0-0.2); Basophils % (auto) 0.9 %; Eosinophils # (auto) 0.12 K/uL (0-0.50); Eosinophils % (auto) 2.1 %; Hemoglobin 11.9 g/dl (12.0-16.0); Immature Granulocytes % (auto) 1.7 %; Lymphocytes # (auto) 2.08 K/uL (1.2-3.4); Lymphocytes % (auto) 35.6 %; Mean Corpuscular Hemoglobin 31.1 pg (25.0-34.0); Mean Corpuscular Hgb Conc 33.1 g/dL (32.0-36.0); Mean Platelet Volume 9.5 fL (9.4-12.4); Monocytes # (auto) 0.63 K/uL (0.11-0.59); Monocytes % (auto) 10.8 %; Neutrophils # (auto) 2.86 K/uL (1.40-6.50); Neutrophils % (auto) 48.9 %; Platelet Count 231 K/uL (130-400); RDW Coefficient of Variation 14.5 % (11.5-14.5); RDW Standard Deviation 49.3 fL (36.4-46.3); Red Blood Count 3.83 M/uL (4.20-5.40); White Blood Count 5.84 K/ul (4.8-10.8)
[2023-03-21] MEDS: INSULIN ASPART PER UNIT CHARGE SC SCH ×4 (09:01→21:10)
[2023-03-21] MEDS: ARTIFICIAL TEARS OPR SCH ×4 (09:01→20:46)
[2023-03-21] MEDS: DOXYCYCLINE HYCLATE 100 MG CAP PO SCH ×2 (09:02→19:45)
[2023-03-21] MEDS: GABAPENTIN 100 MG CAP PO SCH ×3 (09:02→19:46)
[2023-03-21] MEDS: METOPROLOL SUCC 25MG EXT REL TAB PO SCH (09:03)
[2023-03-21] MEDS: VENLAFAXINE HCL XR 150 MG CAPXR PO SCH (09:04)
[2023-03-21] MEDS: LOSARTAN POTASSIUM 50 MG TAB PO SCH (09:04)
[2023-03-21] MEDS: buPROPion XL 150 MG TABCR PO SCH (09:04)
[2023-03-21] MEDS: ATORVASTATIN 10 MG TAB PO SCH (09:05)
[2023-03-21] MEDS: ENOXAPARIN INJ 40 MG/0.4 ML SYR SQ SCH (09:06)
--- NOTE | 2023-03-21 14:30 | Hospitalist Progress Note ---
Date of Service March 21, 2023 Assessment & Plan (1) Osteomyelitis: Plan: Initial minor injury noted under the nail of the left third toe [place]. Applied Band-Aid and then condition worsened and went to see her primary care physician on and underwent an x-ray on 03/14/2023 and was put on doxycycline. The condition seem to be improving but she was called in on with abnormal x-ray finding and was advised to come to the ER for further evaluation and management. X-ray did show osteomyelitis involving the terminal phalanx of the left third toe DM neuropathy with foot infection No sepsis on admission Appreciate Ortho input and recommendation We will continue current antibiotics with intravenous vancomycin and doxycycline Will have MRI to evaluate osteomyelitis and further management as per orthopedic surgeon Patient remains asymptomatic and without any pain likely secondary to neuropathy from diabetes Left foot and the third toe show significant improvement with IV antibiotic MRI of the left foot did not show osteomyelitis involving the terminal phalanx of third toe We will keep the patient n.p.o. after midnight for possible surgery tomorrow morning We will put ID consult Patient remains stable and medically stable to be discharged Hypertension, slightly elevated Blood pressure seems to be on the lower side and stable Hyperlipidemia on statin Rx DM2 on oral medications, suboptimal control as of recent hemoglobin A1c of 7.4 last July 2022 Blood sugar remains stable We will continue with sliding scale insulin coverage Basal bolus insulin, ISS BG goal 1 10-1 40, carb count coverage, update hemoglobin A1c-7.4 as on 03/19/2023 Hypothyroidism, euthyroid as of recent outpatient TSH Continue supplement Anxiety/mood disorder, at baseline Recent Paredes's palsy, improved post Valtrex and prednisone Rx No acute issues DVT prophylaxis. Lovenox subcu Full code Admission and Anticipated Discharge Date Admission Date: March 19, 2023 Subjective 03/20/2023 The patient was seen and examined in medical floor She was sent in from home following an abnormal x-ray report done by the PCP Has osteomyelitis involving the distal phalanx of left third toe Denies any fever and or chills, any pain, any nausea and or vomiting but does have minimal warmth and redness of the adjoining foot 03/21/2023 The patient was seen and examined in medical floor She has been stable in the left foot is looking much better No fever and or chills Review of Systems Review of Systems: All systems reviewed and are unremarkable except as noted below Physical Exam Physical Exam: Lying in bed comfortably Constitutional: well developed, well nourished and + obese; not ill appearing Eyes: PERRL, conjunctivae normal, anicteric sclerae ENMT: external ear and nose normal, oropharynx normal Neck: trachea midline, no thyromegaly Respiratory: no respiratory distress Auscultation: lungs clear to auscultation bilaterally Cardiovascular: Rate/Rhythm: regular rate and regular rhythm; not tachycardic Heart Sounds: normal S1 and normal S2; no murmur Extremities: + edema (Trace edema bilaterally) Gastrointestinal (Abdomen): Inspection/Auscultation: normal bowel sounds; abdomen not distended Percussion/Palpation: abdomen soft; abdomen nontender Musculoskeletal: Extremities: + foot abnormality (Left third toe is swollen with an ulcer at the tip with adjoining redness ) Neurologic: normal touch/pain/proprioception and moves all extremities; no focal motor deficits Psychiatric: A+Ox3, euthymic affect Lymphatic: no cervical or axillary lymphadenopathy Results & Data Results & Data Vital Signs (Past 12 Hours) Vital Signs Temp Pulse Resp BP Pulse Ox O2 Del Method 03/21/23 07:09 36.8 C 65 16 109/70 96 Room Air Laboratory Results Short CBC 03/21/23 Range/Units 06:51 WBC 5.84 (4.8-10.8) K/ul Hgb 11.9 L (12.0-16.0) g/dl Hct 36.0 L (37.0-47.0) % Plt Count 231 (130-400) K/uL BMP 03/21/23 06:51 Sodium 138 Potassium 4.2 Chloride 105 Carbon Dioxide 27 BUN 15 Creatinine 0.86 Glucose 145 H Calcium 8.8 Medications Administered Current Inpatient Medications Acetaminophen (Acetaminophen 325 Mg Tab) 650 mg PO Q4H PRN PRN Reason: pain/fever Stop: 04/19/23 00:40 Artificial Tears (Artificial Tears) 1 drops OPR QID [facility] Stop: 04/19/23 01:44 Last Admin: 03/21/23 12:50 Dose: Not Given Atorvastatin Calcium (Atorvastatin 10 Mg Tab) 10 mg PO DAILY [facility] Stop: 04/19/23 08:59 Last Admin: 03/21/23 09:05 Dose: 10 mg Bupropion HCl (Bupropion Xl 150 Mg Tabcr) 150 mg PO QAM [facility] Stop: 04/19/23 08:59 Last Admin: 03/21/23 09:04 Dose: 150 mg Dextrose (Dextrose 50% 50 Ml Syringe) 25 - 50 ml IV UD PRN; Protocol PRN Reason: Hypoglycemia Protocol Stop: 04/19/23 00:40 Doxycycline Hyclate (Doxycycline Hyclate 100 Mg Cap) 100 mg PO BID [facility] Stop: 05/01/23 08:59 Last Admin: 03/21/23 09:02 Dose: 100 mg Enoxaparin Sodium (Enoxaparin Inj 40 Mg/0.4 Ml Syr) 40 mg SQ QAM [facility] Stop: 04/19/23 08:59 Last Admin: 03/21/23 09:06 Dose: 40 mg Gabapentin (Gabapentin 100 Mg Cap) 200 mg PO TID [facility] Stop: 04/19/23 08:59 Last Admin: 03/21/23 09:02 Dose: 200 mg Glucagon (Glucagon For Inj 1 Mg Vial) 1 mg SQ UD PRN; Protocol PRN Reason: Hypoglycemia Protocol Stop: 04/19/23 00:40 Glucose (Glucose 10 Tab/Tube) 4 - 8 tab PO UD PRN; Protocol PRN Reason: Hypoglycemia Treatment Stop: 04/19/23 00:40 Glucose (Glucose 40% Gel 15 Gm Tube) 15 - 30 gm PO UD PRN; Protocol PRN Reason: Hypoglycemia Protocol Stop: 04/19/23 00:40 Cefepime HCl 2,000 mg/ Syringe 20 mls @ 5 mls/min IV Q8H ZOE; Protocol Stop: 05/01/23 05:59 Last Admin: 03/21/23 06:13 Dose: 5 mls/min Promethazine HCl 12.5 mg/ (Sodium Chloride) 50.5 mls @ 202 mls/hr IV Q6H PRN PRN Reason: Nausea And Vomiting Stop: 04/19/23 00:40 Insulin Aspart (Insulin Aspart Per Unit Charge) 0 units SC ACHS [facility] Stop: 04/19/23 00:40 Last Admin: 03/21/23 12:49 Dose: 4 units Insulin Glargine (Lantus Per Unit Charge) 5 units SQ HS [facility] Stop: 04/19/23 00:40 Last Admin: 03/20/23 21:27 Dose: 5 units Levothyroxine Sodium (Levothyroxine Sodium 112 Mcg Tablet) 112 mcg PO DAILYBB [facility] Stop: 04/19/23 06:29 Last Admin: 03/21/23 06:13 Dose: 112 mcg Losartan Potassium (Losartan Potassium 50 Mg Tab) 100 mg PO QAM [facility] Stop: 04/19/23 08:59 Last Admin: 03/21/23 09:04 Dose: 100 mg Metoprolol Succinate (Metoprolol Succ 25mg Ext Rel Tab) 25 mg PO DAILY [facility] Stop: 04/19/23 08:59 Last Admin: 03/21/23 09:03 Dose: 25 mg Miscellaneous (Carbohydrates For Hypoglycemia ) 15 - 30 gm PO UD PRN PRN Reason: Hypoglycemia Protocol Stop: 04/19/23 00:40 Oxycodone HCl (Oxycodone Hcl Ir 5 Mg Tab (Immediate Release)) 5 mg PO Q4H PRN PRN Reason: Pain Stop: 04/03/23 00:40 Venlafaxine HCl (Venlafaxine Hcl Xr 150 Mg Capxr) 150 mg PO DAILY [facility] Stop: 04/19/23 08:59 Last Admin: 03/21/23 09:04 Dose: 150 mg
[2023-03-21] MEDS: LANTUS PER UNIT CHARGE SQ SCH (21:09)
[2023-03-22] MEDS: LEVOTHYROXINE SODIUM 112 MCG TABLET PO SCH (05:35)
[2023-03-22] MEDS: CEFEPIME 2,000 MG in SYRINGE 0 ML IV SCH ×3 (05:35→22:39)
[2023-03-22] MEDS ORDERED: Nursing to Pharmacy Communication SCH ×4 (07:30→13:30)
[2023-03-22] MEDS: ARTIFICIAL TEARS OPR SCH ×4 (08:49→22:31)
[2023-03-22] MEDS: GABAPENTIN 100 MG CAP PO SCH ×3 (08:50→22:31)
[2023-03-22] MEDS: DOXYCYCLINE HYCLATE 100 MG CAP PO SCH (08:50)
[2023-03-22] MEDS: LOSARTAN POTASSIUM 50 MG TAB PO SCH (08:51)
[2023-03-22] MEDS: ATORVASTATIN 10 MG TAB PO SCH (08:51)
[2023-03-22] MEDS: buPROPion XL 150 MG TABCR PO SCH (08:51)
[2023-03-22] MEDS: METOPROLOL SUCC 25MG EXT REL TAB PO SCH (08:51)
[2023-03-22] MEDS: VENLAFAXINE HCL XR 150 MG CAPXR PO SCH (08:51)
[2023-03-22] MEDS: ENOXAPARIN INJ 40 MG/0.4 ML SYR SQ SCH (09:05)
[2023-03-22] MEDS ORDERED: INSULIN ASPART PER UNIT CHARGE SC SCH ×4 (11:30→16:30)
[2023-03-22] MEDS ORDERED: VANCOMYCIN CONSULT ACTIVE PRN (12:33)
[2023-03-22] MEDS ORDERED: VANCOMYCIN HCL 2,000 MG in SODIUM CHLORIDE 0.9% 500 ML IV ONE (13:00)
--- NOTE | 2023-03-22 14:25 | Pharmacy Report ---
Pharmacy PK ABX Note - Date of Service March 22, 2023 - Assessment and Plan Assessment 57 year old F receiving vancomycin/cefepime for treatment of bone infection. Pertinent microbiologic data includes: cultures are currently negative . Day # 1 of antimicrobial therapy. Plan Vancomycin * Loading dose: 2000 mg IV x 1 * Maintenance dose: 100 mg IV every 12 hours * Regimen is predicted to achieve target AUC/FREEDOM of 400-600 mg/L.hr with 17% risk of nephrotoxicity * Random level ordered for: 03/24/23 Pharmacy will continue to follow and will adjust dose/frequency as necessary. Thank you. Pharmacy has transitioned to AUC monitoring for vancomycin. AUC/FREEDOM is the preferred PK/PD target and is associated with decreased risk of nephrotoxicity compared to traditional trough targets.
--- NOTE | 2023-03-22 15:21 | Hospitalist Progress Note ---
Date of Service March 22, 2023 Assessment & Plan (1) Osteomyelitis: Plan: Initial minor injury noted under the nail of the left third toe while [place] the beach [place]. Applied Band-Aid and then condition worsened and went to see her primary care physician on and underwent an x-ray on 03/14/2023 and was put on doxycycline. The condition seem to be improving but she was called in on with abnormal x-ray finding and was advised to come to the ER for further evaluation and management. X-ray did show osteomyelitis involving the terminal phalanx of the left third toe DM neuropathy with foot infection No sepsis on admission Appreciate Ortho input and recommendation We will continue current antibiotics with intravenous vancomycin and doxycycline Will have MRI to evaluate osteomyelitis and further management as per orthopedic surgeon Patient remains asymptomatic and without any pain likely secondary to neuropathy from diabetes Left foot and the third toe show significant improvement with IV antibiotic MRI of the left foot did not show osteomyelitis involving the terminal phalanx of third toe We will keep the patient n.p.o. after midnight for possible surgery tomorrow morning Discussed with Dr. Larson and was advised to get a podiatry consult for possible surgery with evidence of osteomyelitis Appreciate ID input and recommendation-doxycycline has been changed to intravenous vancomycin and cefepime is being continued Possible surgery this evening by Dr. Keane and following that and depending on the biopsy result further course of action with antibiotic will be decided by the ID specialist Hypertension, slightly elevated Blood pressure seems to be on the lower side and stable Hyperlipidemia on statin Rx DM2 on oral medications, suboptimal control as of recent hemoglobin A1c of 7.4 last July 2022 Blood sugar remains stable We will continue with sliding scale insulin coverage Basal bolus insulin, ISS BG goal 1 10-1 40, carb count coverage, update hemoglobin A1c-7.4 as on 03/19/2023 Hypothyroidism, euthyroid as of recent outpatient TSH Continue supplement Anxiety/mood disorder, at baseline Recent Paredes's palsy, improved post Valtrex and prednisone Rx No acute issues DVT prophylaxis. Lovenox subcu Full code Admission and Anticipated Discharge Date Admission Date: March 19, 2023 Subjective 03/20/2023 The patient was seen and examined in medical floor She was sent in from home following an abnormal x-ray report done by the PCP Has osteomyelitis involving the distal phalanx of left third toe Denies any fever and or chills, any pain, any nausea and or vomiting but does have minimal warmth and redness of the adjoining foot 03/21/2023 The patient was seen and examined in medical floor She has been stable in the left foot is looking much better No fever and or chills 03/22/2023 The patient was seen and examined in medical floor She has been feeling much better Her left third toe has improved a lot She has had ID evaluation this morning Review of Systems Review of Systems: All systems reviewed and are unremarkable except as noted below Physical Exam Physical Exam: Lying in bed comfortably Constitutional: well developed, well nourished and + obese; not ill appearing Eyes: PERRL, conjunctivae normal, anicteric sclerae ENMT: external ear and nose normal, oropharynx normal Neck: trachea midline, no thyromegaly Respiratory: no respiratory distress Auscultation: lungs clear to auscultation bilaterally Cardiovascular: Rate/Rhythm: regular rate and regular rhythm; not tachycardic Heart Sounds: normal S1 and normal S2; no murmur Extremities: + edema (Tra ce edema bilaterally) Gastrointestinal (Abdomen): Inspection/Auscultation: normal bowel sounds; abdomen not distended Percussion/Palpation: abdomen soft; abdomen nontender Musculoskeletal: Extremities: + foot abnormality (Left third toe is swollen with an ulcer at the tip with adjoining redness ) Neurologic: normal touch/pain/proprioception and moves all extremities; no focal motor deficits Psychiatric: A+Ox3, euthymic affect Lymphatic: no cervical or axillary lymphadenopathy Results & Data Results & Data Vital Signs (Past 12 Hours) Vital Signs Temp Pulse Resp BP Pulse Ox O2 Del Method 03/22/23 08:07 36.8 C 76 18 140/75 98 Room Air Medications Administered Current Inpatient Medications Acetaminophen (Acetaminophen 325 Mg Tab) 650 mg PO Q4H PRN PRN Reason: pain/fever Stop: 04/19/23 00:40 Artificial Tears (Artificial Tears) 1 drops OPR QID [facility] Stop: 04/19/23 01:44 Last Admin: 03/22/23 12:41 Dose: 1 drops Atorvastatin Calcium (Atorvastatin 10 Mg Tab) 10 mg PO DAILY [facility] Stop: 04/19/23 08:59 Last Admin: 03/22/23 08:51 Dose: 10 mg Bupropion HCl (Bupropion Xl 150 Mg Tabcr) 150 mg PO QAM [facility] Stop: 04/19/23 08:59 Last Admin: 03/22/23 08:51 Dose: 150 mg Dextrose (Dextrose 50% 50 Ml Syringe) 25 - 50 ml IV UD PRN; Protocol PRN Reason: Hypoglycemia Protocol Stop: 04/19/23 00:40 Enoxaparin Sodium (Enoxaparin Inj 40 Mg/0.4 Ml Syr) 40 mg SQ QAM [facility] Stop: 04/19/23 08:59 Last Admin: 03/22/23 09:05 Dose: Not Given Gabapentin (Gabapentin 100 Mg Cap) 200 mg PO TID [facility] Stop: 04/19/23 08:59 Last Admin: 03/22/23 14:58 Dose: 200 mg Glucagon (Glucagon For Inj 1 Mg Vial) 1 mg SQ UD PRN; Protocol PRN Reason: Hypoglycemia Protocol Stop: 04/19/23 00:40 Glucose (Glucose 10 Tab/Tube) 4 - 8 tab PO UD PRN; Protocol PRN Reason: Hypoglycemia Treatment Stop: 04/19/23 00:40 Glucose (Glucose 40% Gel 15 Gm Tube) 15 - 30 gm PO UD PRN; Protocol PRN Reason: Hypoglycemia Protocol Stop: 04/19/23 00:40 Cefepime HCl 2,000 mg/ Syringe 20 mls @ 5 mls/min IV Q8H [facility]; Protocol Stop: 05/01/23 05:59 Last Admin: 03/22/23 14:58 Dose: 5 mls/min Promethazine HCl 12.5 mg/ (Sodium Chloride) 50.5 mls @ 202 mls/hr IV Q6H PRN PRN Reason: Nausea And Vomiting Stop: 04/19/23 00:40 Vancomycin HCl 2,000 mg/ (Sodium Chloride) 540 mls @ 200 mls/hr IV NOW ONE; Protocol Stop: 03/22/23 15:41 Last Admin: 03/22/23 13:37 Dose: 200 mls/hr Vancomycin HCl 1,000 mg/ (Sodium Chloride) 270 mls @ 200 mls/hr IV Q12 [facility] Stop: 05/03/23 20:59 Insulin Aspart (Insulin Aspart Per Unit Charge) 0 units SC ACHS [facility] Stop: 04/21/23 16:29 Insulin Glargine (Lantus Per Unit Charge) 5 units SQ HS [facility] Stop: 04/19/23 00:40 Last Admin: 03/21/23 21:09 Dose: 5 units Levothyroxine Sodium (Levothyroxine Sodium 112 Mcg Tablet) 112 mcg PO DAILYBB [facility] Stop: 04/19/23 06:29 Last Admin: 03/22/23 05:35 Dose: 112 mcg Losartan Potassium (Losartan Potassium 50 Mg Tab) 100 mg PO QAM [facility] Stop: 04/19/23 08:59 Last Admin: 03/22/23 08:51 Dose: 100 mg Metoprolol Succinate (Metoprolol Succ 25mg Ext Rel Tab) 25 mg PO DAILY [facility] Stop: 04/19/23 08:59 Last Admin: 03/22/23 08:51 Dose: 25 mg Miscellaneous (Carbohydrates For Hypoglycemia ) 15 - 30 gm PO UD PRN PRN Reason: Hypoglycemia Protocol Stop: 04/19/23 00:40 Miscellaneous Information (Vancomycin Consult Active) 1 each N/A UD PRN PRN Reason: Consult Stop: 04/21/23 12:32 Oxycodone HCl (Oxycodone Hcl Ir 5 Mg Tab (Immediate Release)) 5 mg PO Q4H PRN PRN Reason: Pain Stop: 04/03/23 00:40 Venlafaxine HCl (Venlafaxine Hcl Xr 150 Mg Capxr) 150 mg PO DAILY [facility] Stop: 04/19/23 08:59 Last Admin: 03/22/23 08:51 Dose: 150 mg
[2023-03-22] MEDS: INSULIN ASPART PER UNIT CHARGE SC SCH ×2 (18:12→22:32)
--- NOTE | 2023-03-22 20:47 | Orthopedic Consultation ---
Date of Consultation March 22, 2023 Assessment & Plan (1) Osteomyelitis: Plan Patient seen, evaluated, and treated. Reviewed x-ray, MRI and MRI findings. Discussed third distal phalanx osteomyelitis and associated diabetic foot ulcer. Patient does not wish to undergone any resection of nonviable bone. We did discuss need for 6-8 week antibiotic therapy for treatment. I examined the patient for an ulcer that has been resistant to healing. Off- loading is a critical part of this patient's management. Discussed contracture deformity resulting in distal left third toe ulcer secondary to weight bearing forces. Reviewed flexor tenotomy for reduction of deformity. Verbal consent obtained. Procedure performed at bedside with out incident. Patinet tolerated procedure well. Dry Sterile dressing applied. Order for off loading surgical shoe placed. Patient is weight bearing as frankie erated in surgical off loading shoe. Will continue to follow while in house. Patient of for discharge per podiatry. Thank you for allowing me to participate in the care of this Patient. Procedure in detail: After consent was obtained the patient was was made comfortable at bedside. Attention was directed to the left third surgical toe. The area surrounding the skin incision sitewas prepared and draped in the usual septic manner. The toe was prepped with povidone iodine solution. Due to dense neuropathy local anesthesia was not applied.A sterile prep [place] drain tourniquet was applied proximal to the operative site of the left third toe. The toe was re- washed with surgical solution. Sharp sterile #15 blade was utilized to create skin incisions the #15 was then utilized to create the flexor tenotomy of the left third toe was completed with out incident and correction of the deformity was reduced. The tourniquet was removed and a prompt hyperemic response was noted to the toe. Dry sterile dressing was applied consisting of 4 x 4 gauze. The patient tolerated procedure and anesthesia well. Complications: None History of Present Illness Attending Physician: Devora Dsouza MD History of Present Illness Patient is a type II diabetic, 50-year-old female with history of left third toe wound.Medical history significant for hypertension, hyperlipidemia, DM2 on oral medications, hypothyroidism, anxiety/mood disorder, recent Paredes's palsy. Patient was evaluated in the [facility] emergency department on03/19/23. Diagnostic imaging shows signs consistent with osteomyelitis of the distal third phalanx. The patient has been started on IV antibiotic therapy. She does report that her swelling has much improved since starting antibiotics as well has her not manage pain due to peripheral neuropathy. Allergies Allergy/AdvReac Type Severity Reaction Status Date / Time No Known Allergies Allergy Unknown Verified 09/23/17 21:13 Home Medications Medication Instructions Recorded Confirmed Type ATORVASTATIN (LIPITOR) 10 mg PO DAILY #0 tabs 09/23/17 03/19/23 History VENLAFAXINE HCL (VENLAFAXINE HCL 150 mg PO DAILY 30 days #30 tabs 09/23/17 03/19/23 History ER) carboxymethylcellulose sodium 0.5 1 drp ophthalmic (eye) QID PRN dry 02/08/23 03/19/23 Rx % eye drops (Refresh Tears) eye(s) #15 mL doxycycline hyclate 100 mg capsule 100 mg PO BID 03/19/23 03/19/23 History gabapentin 100 mg capsule 100 mg PO DAILY 03/19/23 03/19/23 History levothyroxine 112 mcg tablet 112 mcg PO DAILY 03/19/23 03/19/23 History losartan 100 1 tab PO DAILY 03/19/23 03/19/23 History mg-hydrochlorothiazide 25 mg tablet metformin 500 mg tablet,extended 500 mg PO BID 03/19/23 03/19/23 History release 24 hr metoprolol succinate 25 mg 25 mg PO DAILY 03/19/23 03/19/23 History tablet,extended release 24 hr bupropion HCl 150 mg 24 hr tablet, 150 mg PO DAILY 03/20/23 03/20/23 History extended release Patient History Medical History Hypertension Hypothyroidism Lumbar radiculopathy Social History Smoking Status: Never smoker Second Hand Exposure: No; Do You Dip or Chew Tobacco: No; Tobacco Cessation Education Requested by Patient: No Hx Alcohol Use: Yes Alcohol type: wine and hard liquor Hx Substance Use: No Preferred Language: Upper Sorbian Communication Ability: Effective Hospital Personnel Director Required: No Beliefs That Will Affect Care: None Current Living Situation: Family Other Information That Helps Us Care for You: No Feels Safe at Home: Yes Safety Concerns: Feels Safe At This Time Assistive Devices: CPAP and Glasses Review of Systems Review of Systems: All systems reviewed & are unremarkable except as noted in Subjective Physical Exam Constitutional: well nourished, cooperative and comfortable Eyes: normal visual [place]udd[place] by confrontation Neck: normal visual inspection and trachea midline Respiratory: normal respiratory effort Cardiovascular: Rate/Rhythm: regular rate and regular rhythm Vessels: posterior tibial pulses present and dorsalis pedis pulses present Musculoskeletal: Extremities: extremities normal to inspection and + foot abnormality (Digital contractures 2 - 5 ) Bilateral Skin: + ulcer (Left distal third toe secondary to weight bearing forces) Neurologic: moves all extremities (Absent epicritic sensation bilateral feet) Psychiatric: Orientation: alert and oriented x 3 Results & Data Vital Signs (Past 12 Hours) Vital Signs Temp Pulse Resp BP Pulse Ox O2 Del Method 03/22/23 15:37 36.8 C 70 18 125/76 96 Room Air Diagnostic Findings [place], [place] [phone] Magnetic Resonance Report Patient:YUMIKO STRINGER Admit Date:03/19/23 MR#:[id number] Address1:[address] [place] [address] Acct ID:[id number] Address2: Date:1965 [facility] Zip:[place] [address] Age:57 Location:3N Sex:F Room/Bed:[facility] Att Phy:Devora Dsouza MD Diagnosis:DM FOOT INFX Bre Phy:Mitzi Vega DO Service Date:03/20/23 Fam Phy: Interpreting Phy:Jose L Vazquez MDAdmit Phy:Owen Sanchez MD Ordering Phy:Reuben Larson DO cc: ~ MR foot LT wo/w con CLINICAL HISTORY: suspected osteomyelitis TECHNIQUE: Multiplanar multisequence MR images of the left foot were obtained. Comparison: Comparison is made to left foot radiograph 03/19/2023 FINDINGS: Soft tissue swelling and edema are seen most prominent in the third digit. There is edema of the distal phalanx of the third digit. No drainable fluid collections are seen. IMPRESSION: Findings are compatible with cellulitis with osteomyelitis of the third digit distal phalanx. ACT 112: Negative or not required by law. Electronically signed by: Jose L Vazquez M.D. 03/20/2023 4:29 PM
[2023-03-22] MEDS: LANTUS PER UNIT CHARGE SQ SCH (22:38)
[2023-03-22] MEDS: VANCOMYCIN HCL 1,000 MG in SODIUM CHLORIDE 0.9% 250 ML IV SCH (22:39)
[2023-03-23] MEDS: CEFEPIME 2,000 MG in SYRINGE 0 ML IV SCH ×3 (05:46→22:54)
[2023-03-23] MEDS: LEVOTHYROXINE SODIUM 112 MCG TABLET PO SCH (05:46)
[2023-03-23 07:41] LABS: Creatinine Clr Calc Pharmacy 103.9 ml/min; Est GFR (African American) 111.5 ml/min; Est GFR (Non-African American) 96.2 ml/min
[2023-03-23] MEDS: VENLAFAXINE HCL XR 150 MG CAPXR PO SCH (08:39)
[2023-03-23] MEDS: buPROPion XL 150 MG TABCR PO SCH (08:39)
[2023-03-23] MEDS: LOSARTAN POTASSIUM 50 MG TAB PO SCH (08:39)
[2023-03-23] MEDS: METOPROLOL SUCC 25MG EXT REL TAB PO SCH (08:39)
[2023-03-23] MEDS: ATORVASTATIN 10 MG TAB PO SCH (08:39)
[2023-03-23] MEDS: GABAPENTIN 100 MG CAP PO SCH ×3 (08:40→21:04)
[2023-03-23] MEDS: ENOXAPARIN INJ 40 MG/0.4 ML SYR SQ SCH (08:41)
[2023-03-23] MEDS: ARTIFICIAL TEARS OPR SCH ×4 (08:43→21:05)
[2023-03-23] MEDS: INSULIN ASPART PER UNIT CHARGE SC SCH ×4 (08:44→21:05)
[2023-03-23] MEDS: VANCOMYCIN HCL 1,000 MG in SODIUM CHLORIDE 0.9% 250 ML IV SCH ×2 (08:51→21:11)
--- NOTE | 2023-03-23 14:33 | Hospitalist Progress Note ---
Date of Service March 23, 2023 Assessment & Plan (1) Osteomyelitis: Plan: Initial minor injury noted under the nail of the left third toe [place]. Applied Band-Aid and then condition worsened and went to see her primary care physician on and underwent an x-ray on 03/14/2023 and was put on doxycycline. The condition seem to be improving but she was called in on with abnormal x-ray finding and was advised to come to the ER for further evaluation and management. X-ray did show osteomyelitis involving the terminal phalanx of the left third toe DM neuropathy with foot infection No sepsis on admission Appreciate Ortho input and recommendation We will continue current antibiotics with intravenous vancomycin and doxycycline Will have MRI to evaluate osteomyelitis and further management as per orthopedic surgeon Patient remains asymptomatic and without any pain likely secondary to neuropathy from diabetes Left foot and the third toe show significant improvement with IV antibiotic MRI of the left foot did not show osteomyelitis involving the terminal phalanx of third toe We will keep the patient n.p.o. after midnight for possible surgery tomorrow morning Discussed with Dr. Larson and was advised to get a podiatry consult for possible surgery with evidence of osteomyelitis Appreciate ID input and recommendation-doxycycline has been changed to intravenous vancomycin and cefepime is being continued Possible surgery this evening by Dr. Keane and following that and depending on the biopsy result further course of action with antibiotic will be decided by the ID specialist The patient declined any amputation of the third toe and I&D was done by Dr. Keane on 03/22/2023 The fluid is growing scant skin blanca and will not be sent for any sensitivity Discussed with Dr. Santana, the ID specialist in [place] and advised to continue current IV antibiotics with intravenous cefepime 2 g every 8 hourly and intravenous vancomycin as directed for a total of 6 weeks from the beginning PICC line consent was taken and the patient is going to be discharged tomorrow Hypertension, slightly elevated Blood pressure seems to be on the lower side and stable Hyperlipidemia on statin Rx DM2 on oral medications, suboptimal control as of recent hemoglobin A1c of 7.4 last July 2022 Blood sugar remains stable We will continue with sliding scale insulin coverage Basal bolus insulin, ISS BG goal 1 10-1 40, carb count coverage, update hemoglobin A1c-7.4 as on 03/19/2023 Hypothyroidism, euthyroid as of recent outpatient TSH Continue supplement Anxiety/mood disorder, at baseline Recent Paredes's palsy, improved post Valtrex and prednisone Rx No acute issues DVT prophylaxis. [facility] subcu Full code Admission and Anticipated Discharge Date Admission Date: March 19, 2023 Subjective 03/20/2023 The patient was seen and examined in medical floor She was sent in from home following an abnormal x-ray report done by the PCP Has osteomyelitis involving the distal phalanx of left third toe Denies any fever and or chills, any pain, any nausea and or vomiting but does have minimal warmth and redness of the adjoining foot 03/21/2023 The patient was seen and examined in medical floor She has been stable in the left foot is looking much better No fever and or chills 03/22/2023 The patient was seen and examined in medical floor She has been feeling much better Her left third toe has improved a lot She has had ID evaluation this morning 03/23/2023 The patient was seen and examined in medical floor She is status post IND of the left third toe and has been feeling much better Discussed with ID and will need IV antibiotic for 6 weeks in total Review of Systems Review of Systems: All systems reviewed and are unremarkable except as noted below Physical Exam Physical Exam: Lying in bed comfortably Constitutional: well developed, well nourished and + obese; not ill appearing Eyes: PERRL, conjunctivae normal, anicteric sclerae ENMT: external ear and nose normal, oropharynx normal Neck: trachea midline, no thyromegaly Respiratory: no respiratory distress Auscultation: lungs clear to auscultation bilaterally Cardiovascular: Rate/Rhythm: regular rate and regular rhythm; not tachycardic Heart Sounds: normal S1 and normal S2; no murmur Extremities: + edema (Trace edema bilaterally) Gastrointestinal (Abdomen): Inspection/Auscultation: normal bowel sounds; abdomen not distended Percussion/Palpation: abdomen soft; abdomen nontender Musculoskeletal: Extremities: + foot abnormality (Left third toe is swollen with an ulcer at the tip with adjoining redness ) Neurologic: normal touch/pain/proprioception and moves all extremities; no focal motor deficits Psychiatric: A+Ox3, euthymic affect Lymphatic: no cervical or axillary lymphadenopathy Results & Data Results & Data Vital Signs (Past 12 Hours) Vital Signs Temp Pulse Resp BP Pulse Ox O2 Del Method 03/23/23 07:16 36.5 C 76 16 111/67 97 Room Air Laboratory Results BMP 03/23/23 06:32 Creatinine 0.70 Medications Administered Current Inpatient Medications Acetaminophen (Acetaminophen 325 Mg Tab) 650 mg PO Q4H PRN PRN Reason: pain/fever Stop: 04/19/23 00:40 Artificial Tears (Artificial Tears) 1 drops OPR QID ZOE Stop: 04/19/23 01:44 Last Admin: 03/23/23 12:46 Dose: Not Given Atorvastatin Calcium (Atorvastatin 10 Mg Tab) 10 mg PO DAILY ZOE Stop: 04/19/23 08:59 Last Admin: 03/23/23 08:39 Dose: 10 mg Bupropion HCl (Bupropion Xl 150 Mg Tabcr) 150 mg PO QAM [facility] Stop: 04/19/23 08:59 Last Admin: 03/23/23 08:39 Dose: 150 mg Dextrose (Dextrose 50% 50 Ml Syringe) 25 - 50 ml IV UD PRN; Protocol PRN Reason: Hypoglycemia Protocol Stop: 04/19/23 00:40 Enoxaparin Sodium (Enoxaparin Inj 40 Mg/0.4 Ml Syr) 40 mg SQ QAM [facility] Stop: 04/19/23 08:59 Last Admin: 03/23/23 08:41 Dose: Not Given Gabapentin (Gabapentin 100 Mg Cap) 200 mg PO TID [facility] Stop: 04/19/23 08:59 Last Admin: 03/23/23 13:02 Dose: 200 mg Glucagon (Glucagon For Inj 1 Mg Vial) 1 mg SQ UD PRN; Protocol PRN Reason: Hypoglycemia Protocol Stop: 04/19/23 00:40 Glucose (Glucose 10 Tab/Tube) 4 - 8 tab PO UD PRN; Protocol PRN Reason: Hypoglycemia Treatment Stop: 04/19/23 00:40 Glucose (Glucose 40% Gel 15 Gm Tube) 15 - 30 gm PO UD PRN; Protocol PRN Reason: Hypoglycemia Protocol Stop: 04/19/23 00:40 Cefepime HCl 2,000 mg/ Syringe 20 mls @ 5 mls/min IV Q8H ZOE; Protocol Stop: 05/01/23 05:59 Last Admin: 03/23/23 13:03 Dose: 5 mls/min Promethazine HCl 12.5 mg/ (Sodium Chloride) 50.5 mls @ 202 mls/hr IV Q6H PRN PRN Reason: Nausea And Vomiting Stop: 04/19/23 00:40 Vancomycin HCl 1,000 mg/ (Sodium Chloride) 270 mls @ 200 mls/hr IV Q12 ZOE Stop: 05/03/23 20:59 Last Infusion: 03/23/23 10:31 Dose: Infused Insulin Aspart (Insulin Aspart Per Unit Charge) 0 units SC ACHS ZOE Stop: 04/21/23 16:29 Last Admin: 03/23/23 12:44 Dose: 4 units Insulin Glargine (Lantus Per Unit Charge) 5 units SQ HS [facility] Stop: 04/19/23 00:40 Last Admin: 03/22/23 22:38 Dose: 5 units Levothyroxine Sodium (Levothyroxine Sodium 112 Mcg Tablet) 112 mcg PO DAILYBB [facility] Stop: 04/19/23 06:29 Last Admin: 03/23/23 05:46 Dose: 112 mcg Losartan Potassium (Losartan Potassium 50 Mg Tab) 100 mg PO QAM [facility] Stop: 04/19/23 08:59 Last Admin: 03/23/23 08:39 Dose: 100 mg Metoprolol Succinate (Metoprolol Succ 25mg Ext Rel Tab) 25 mg PO DAILY ZOE Stop: 04/19/23 08:59 Last Admin: 03/23/23 08:39 Dose: 25 mg Miscellaneous (Carbohydrates For Hypoglycemia ) 15 - 30 gm PO UD PRN PRN Reason: Hypoglycemia Protocol Stop: 04/19/23 00:40 Miscellaneous Information (Vancomycin Consult Active) 1 each N/A UD PRN PRN Reason: Consult Stop: 04/21/23 12:32 Oxycodone HCl (Oxycodone Hcl Ir 5 Mg Tab (Immediate Release)) 5 mg PO Q4H PRN PRN Reason: Pain Stop: 04/03/23 00:40 Venlafaxine HCl (Venlafaxine Hcl Xr 150 Mg Capxr) 150 mg PO DAILY ZOE Stop: 04/19/23 08:59 Last Admin: 03/23/23 08:39 Dose: 150 mg
[2023-03-23] MEDS: LANTUS PER UNIT CHARGE SQ SCH (21:04)
[2023-03-24] MEDS: CEFEPIME 2,000 MG in SYRINGE 0 ML IV SCH ×3 (05:52→21:05)
[2023-03-24] MEDS: LEVOTHYROXINE SODIUM 112 MCG TABLET PO SCH (05:52)
[2023-03-24 06:46] LABS: Creatinine Clr Calc Pharmacy 99.6 ml/min; Est GFR (Non-African American) 91.4 ml/min
[2023-03-24] MEDS: ENOXAPARIN INJ 40 MG/0.4 ML SYR SQ SCH (08:28)
[2023-03-24] MEDS: GABAPENTIN 100 MG CAP PO SCH ×3 (08:29→20:03)
[2023-03-24] MEDS: ATORVASTATIN 10 MG TAB PO SCH (08:29)
[2023-03-24] MEDS: buPROPion XL 150 MG TABCR PO SCH (08:29)
[2023-03-24] MEDS: METOPROLOL SUCC 25MG EXT REL TAB PO SCH (08:30)
[2023-03-24] MEDS: LOSARTAN POTASSIUM 50 MG TAB PO SCH (08:30)
[2023-03-24] MEDS ORDERED: VANCOMYCIN LEVEL ONE (08:30)
[2023-03-24] MEDS: VENLAFAXINE HCL XR 150 MG CAPXR PO SCH (08:31)
[2023-03-24] MEDS: ARTIFICIAL TEARS OPR SCH ×4 (08:31→20:03)
[2023-03-24] MEDS: INSULIN ASPART PER UNIT CHARGE SC SCH ×4 (08:55→21:04)
[2023-03-24] MEDS: VANCOMYCIN HCL 1,000 MG in SODIUM CHLORIDE 0.9% 250 ML IV SCH (08:56)
--- NOTE | 2023-03-24 09:04 | Orthopedic Progress Note ---
Date of Service March 24, 2023 Assessment & Plan (1) Osteomyelitis: Plan Patient seen, evaluated, and treated. Reviewed ID recommendations. 6 weeks IV abx. PICC line in place. Discussed MRI findings. Discussed third distal phalanx osteomyelitis and associated diabetic foot ulcer. Off-loading is a critical part of this patient's management. Dry Sterile dressing applied. Patient is weight bearing as tolerated in surgical off loading shoe. Will continue to follow while in house. Patient of for discharge per podiatry. Thank you for allowing me to participate in the care of this Patient. Admission and Anticipated Discharge Date Admission Date: March 19, 2023 Subjective Patient seen at bedside this morning. She has no complaints. Dressing is clean, dry, and intact. Review of Systems Review of Systems: All systems reviewed & are unremarkable except as noted in Subjective Physical Exam Constitutional: well nourished, cooperative and comfortable Eyes: normal visual huddleston by confrontation Neck: normal visual inspection and trachea midline Respiratory: normal respiratory effort Cardiovascular: Rate/Rhythm: regular rate and regular rhythm Vessels: posterior tibial pulses present and dorsalis pedis pulses present Musculoskeletal: Extremities: extremities normal to inspection and + foot abnormality (Digital contractures 2 - 5 ) Skin: + ulcer (Left distal third toe secondary to weight bearing forces) Neurologic: moves all extremities (Absent epicritic sensation bilateral feet) Psychiatric: Orientation: alert and oriented x 3 Results & Data Vital Signs (Past 12 Hours) Vital Signs Temp Pulse Resp BP Pulse Ox O2 Del Method 03/24/23 07:17 36.7 C 67 18 121/73 96 Room Air
--- NOTE | 2023-03-24 09:30 | Pharmacy Report ---
Pharmacy PK ABX Note - Date of Service March 24, 2023 - Assessment and Plan Assessment 03/24: * Random vancomycin level this AM was ~11 mcg/ml (level drawn ~9 hours after previous dose) - current vancomycin dosing associated with AUC/FREEDOM of <400 therefore will increase dosing. Patient to be likely discharged today after 1400 dose of cefepime for 6 weeks of IV antibiotics. T1/2 closer to ~8 hours, however will try and keep with Q12 hour frequency for easier transition/dosing outpatient 03/22: * 57 year old F receiving vancomycin/cefepime for treatment of bone infection. Pertinent microbiologic data includes: cultures are currently negative . Day #3 of antimicrobial therapy. Plan Vancomycin * Random vancomycin level came back at ~11 * Will increase to vancomycin 1500 mg iv q 12 hours - this dosing is estimated to achieve a predicted trough of ~12 mcg/ml, AUC/FREEDOM of ~550 and may be associated with toxicity level of 8% * Would recommend repeat trough level 30 minutes before dose on 03/26 to ensure stable. Patient with BMI >/35 kg/m2 therefore there is increased risk of accumulation with vancomycin * Would recommend checking Scr/trough level 2x/week if stable Pharmacy will continue to follow and will adjust dose/frequency as necessary. Thank you. Pharmacy has transitioned to AUC monitoring for vancomycin. AUC/FREEDOM is the preferred PK/PD target and is associated with decreased risk of nephrotoxicity compared to traditional trough targets.
--- NOTE | 2023-03-24 17:10 | Hospitalist Progress Note ---
Date of Service March 24, 2023 Assessment & Plan (1) Osteomyelitis: Plan: Cellulitis of left third toe Initial minor injury noted under the nail of the left third toe [place]. Applied Band-Aid and then condition worsened and went to see her primary care physician on and underwent an x-ray on 03/14/2023 and was put on doxycycline. The condition seem to be improving but she was called in on with abnormal x-ray finding and was advised to come to the ER for further evaluation and management. X-ray did show osteomyelitis involving the terminal phalanx of the left third toe DM neuropathy with foot infection No sepsis on admission Appreciate Ortho input and recommendation We will continue current antibiotics with intravenous vancomycin and doxycycline Will have MRI to evaluate osteomyelitis and further management as per orthopedic surgeon Patient remains asymptomatic and without any pain likely secondary to neuropathy from diabetes Left foot and the third toe show significant improvement with IV antibiotic MRI of the left foot did not show osteomyelitis involving the terminal phalanx of third toe We will keep the patient n.p.o. after midnight for possible surgery tomorrow morning Discussed with Dr. Larson and was advised to get a podiatry consult for possible surgery with evidence of osteomyelitis Appreciate ID input and recommendation-doxycycline has been changed to intravenous vancomycin and cefepime is being continued Possible surgery this evening by Dr. Keane and following that and depending on the biopsy result further course of action with antibiotic will be decided by the ID specialist The patient declined any amputation of the third toe and I&D was done by Dr. Keane on 03/22/2023 The fluid is growing scant skin blanca and will not be sent for any sensitivity Discussed with Dr. Santana, the ID specialist in [place] and advised to continue current IV antibiotics with intravenous cefepime 2 g every 8 hourly and intravenous vancomycin as directed for a total of 6 weeks from the beginning PICC line consent was taken and the patient is going to be discharged tomorrow 03/24 Vancomycin level subtherapeutic Discussed with pharmacist, increase vancomycin to 1500 mg every 12 hours starting this evening Repeat vancomycin level on Wednesday 30 minutes before 6 AM dose Discussed with patient She will be staying inpatient until vancomycin level determine this coming Wednesday, if therapeutic hopefully can be discharged home with home health services Hypertension, slightly elevated Blood pressure seems to be on the lower side and stable Stable overall throughout the whole day today, except this late afternoon Continue to monitor Hyperlipidemia on statin Rx DM2 on oral medications, suboptimal control as of recent hemoglobin A1c of 7.4 last July 2022 Blood sugar remains stable We will continue with sliding scale insulin coverage Basal bolus insulin, ISS BG goal 1 10-1 40, carb count coverage, update hemoglobin A1c-7.4 as on 03/19/2023 Hypothyroidism, euthyroid as of recent outpatient TSH Continue supplement Anxiety/mood disorder, at baseline Recent Paredes's palsy, improved post Valtrex and prednisone Rx No acute issues Morbid obesity, BMI 41.8 kg/m*m Counseling DVT prophylaxis. Lovenox subcu Full code plan of care discussed with patient in detail and at length all questions answered She is understanding, agreeable, comfortable with the plan of care Admission and Anticipated Discharge Date Admission Date: March 19, 2023 Subjective Follow-up for right middle toe osteomyelitis, cellulitis, etc. Seen sitting up in bedside chair, comfortable, not in distress States she feels okay overall Minimal discomfort over the right middle toe no chest pain, dyspnea, palpitations, dizziness No fevers or chills No other symptoms Review of Systems Review of Systems: all noted and negative except for above Physical Exam Physical Exam: General- oriented x 3, not in distress, speaks in sentences with no effort or accessory muscle use Eyes- anicteric Neck- no JVD Lungs- clear breath sounds bilaterally, no rales/wheezes Heart- normal rate, regular rhythm; no murmurs Abdomen- normal bowel sounds, nondistended, soft, nontender Extremities- no pretibial edema, no calf tenderness Right middle toe: Mild erythema, mild edema, no tenderness, small wound on the tip of the distal phalanx with small amount of blood Very small opening on the ventral aspect, base of the middle toe Neuro- alert, oriented x 3; no gross focal neurologic deficits Skin- warm & dry Results & Data Results & Data Vital Signs (Past 12 Hours) Vital Signs Temp Pulse Resp BP Pulse Ox O2 Del Method 03/24/23 14:26 36.8 C 79 22 155/75 H 96 Room Air 03/24/23 07:17 36.7 C 67 18 121/73 96 Room Air all noted and reviewed including below
[2023-03-24] MEDS: VANCOMYCIN HCL 1,500 MG in SODIUM CHLORIDE 0.9% 500 ML IV SCH (17:55)
[2023-03-24] MEDS: LANTUS PER UNIT CHARGE SQ SCH (21:05)
[2023-03-25] MEDS: LEVOTHYROXINE SODIUM 112 MCG TABLET PO SCH (06:22)
[2023-03-25] MEDS: CEFEPIME 2,000 MG in SYRINGE 0 ML IV SCH ×3 (06:22→21:30)
[2023-03-25] MEDS: VANCOMYCIN HCL 1,500 MG in SODIUM CHLORIDE 0.9% 500 ML IV SCH ×2 (06:23→17:13)
[2023-03-25 06:47] LABS: Creatinine Clr Calc Pharmacy 103.9 ml/min; Est GFR (African American) 111.5 ml/min; Est GFR (Non-African American) 96.2 ml/min
[2023-03-25] MEDS: INSULIN ASPART PER UNIT CHARGE SC SCH ×4 (08:38→20:20)
[2023-03-25] MEDS: buPROPion XL 150 MG TABCR PO SCH (08:42)
[2023-03-25] MEDS: LOSARTAN POTASSIUM 50 MG TAB PO SCH (08:42)
[2023-03-25] MEDS: ARTIFICIAL TEARS OPR SCH ×4 (08:42→20:20)
[2023-03-25] MEDS: METOPROLOL SUCC 25MG EXT REL TAB PO SCH (08:43)
[2023-03-25] MEDS: GABAPENTIN 100 MG CAP PO SCH ×3 (08:43→20:19)
[2023-03-25] MEDS: VENLAFAXINE HCL XR 150 MG CAPXR PO SCH (08:43)
[2023-03-25] MEDS: ATORVASTATIN 10 MG TAB PO SCH (08:43)
[2023-03-25] MEDS: ENOXAPARIN INJ 40 MG/0.4 ML SYR SQ SCH ×2 (08:44→08:46)
[2023-03-25] MEDS: LANTUS PER UNIT CHARGE SQ SCH (20:21)
[2023-03-26] MEDS ORDERED: VANCOMYCIN LEVEL SCH (05:00)
[2023-03-26] MEDS: CEFEPIME 2,000 MG in SYRINGE 0 ML IV SCH ×2 (05:33→13:28)
[2023-03-26] MEDS: VANCOMYCIN HCL 1,500 MG in SODIUM CHLORIDE 0.9% 500 ML IV SCH (05:33)
[2023-03-26] MEDS: LEVOTHYROXINE SODIUM 112 MCG TABLET PO SCH (05:34)
[2023-03-26] MEDS: INSULIN ASPART PER UNIT CHARGE SC SCH ×2 (08:32→12:18)
[2023-03-26] MEDS: METOPROLOL SUCC 25MG EXT REL TAB PO SCH (08:45)
[2023-03-26] MEDS: buPROPion XL 150 MG TABCR PO SCH (08:45)
[2023-03-26] MEDS: LOSARTAN POTASSIUM 50 MG TAB PO SCH (08:45)
[2023-03-26] MEDS: GABAPENTIN 100 MG CAP PO SCH ×2 (08:45→13:28)
[2023-03-26] MEDS: ATORVASTATIN 10 MG TAB PO SCH (08:45)
[2023-03-26] MEDS: VENLAFAXINE HCL XR 150 MG CAPXR PO SCH (08:45)
[2023-03-26] MEDS: ARTIFICIAL TEARS OPR SCH ×2 (08:46→12:21)
[2023-03-26] MEDS: ENOXAPARIN INJ 40 MG/0.4 ML SYR SQ SCH (08:46)
--- NOTE | 2023-03-26 10:37 | Pharmacy Report ---
Pharmacy PK ABX Note - Date of Service March 26, 2023 - Assessment and Plan Assessment 03/26: * Trough Vancomycin level today AM was 12 mcg/ml. This trough corresponds to an AUC/FREEDOM of 523. * Today is day 5 of Vancomycin therapy. Patient is on Vancomycin 1500 mg IV q12h. * Dosing was increased on 03/24 evening. Current trough level is at steady state. 03/24: * Random vancomycin level this AM was ~11 mcg/ml (level drawn ~9 hours after previous dose) - current vancomycin dosing associated with AUC/FREEDOM of <400 therefore will increase dosing. Patient to be likely discharged today after 1400 dose of cefepime for 6 weeks of IV antibiotics. T1/2 closer to ~8 hours, however will try and keep with Q12 hour frequency for easier transition/dosing outpatient 03/22: * 57 year old F receiving vancomycin/cefepime for treatment of bone infection. Pertinent microbiologic data includes: cultures are currently negative . Plan Vancomycin * Current dosing of Vancomycin 1500 mg IV q12h resulted in trough of 12 mcg/ml this morning and AUC/FREEDOM of 523. * Goal AUC/FREEDOM for Osteomyelitis is 500-600. Therefore would continue with current dosing. * Since patient's BMI = 41.8 kg/m2 (that is, BMI greater than 35 kg/m2), there is potential risk for accumulation of Vancomycin and further increase in trough level with continued dosing. * Recommend re-checking Vancomycin trough in 3 days- on Wednesday, March 29. * I spoke with Dr. Omer about re-checking trough. Re-check in 3 days then weekly thereafter unless significant rise in trough or dosing changes. Pharmacy will continue to follow and will adjust dose/frequency as necessary. Thank you. Pharmacy has transitioned to AUC monitoring for vancomycin. AUC/FREEDOM is the preferred PK/PD target and is associated with decreased risk of nephrotoxicity compared to traditional trough targets.
== END 2023-03-26 15:51 | disposition home or self-care (01) | DRG 638 ==
LOC: ED 18:18 → SUATTDRO 23:31 → 3N 23:31